=== PATIENT | female | born 1965 | race Caucasian/White ===

== ENCOUNTER 2016-08-25 11:33 | Inpatient (IN) | payer BC ==
[2016-08-25] MEDS ORDERED: Sodium Chloride 0.9% 10 ML Syringe FLUSH PRN (13:39)
[2016-08-25] MEDS ORDERED: Sodium Chloride 0.9% 2.5 ML Syringe FLUSH PRN (13:39)
--- NOTE | 2016-08-25 13:58 | PCM.CONSN ---
- General Info Date of Service: 08/25/16 Admission Dx/Problem (Free Text): Symptomatic Anemia, Menometrorrhagia Subjective Update: 50 yo female transferred from [facility] 08/25/16 for symptomatic anemia and Menometrorrrhagia with pmh of hypertension, chronic kidney disease, and type II diabetes. Patient states that for the past 2 months she has had increased uterine bleeding. This started in approximately May. She did see Dr. Aldana here in [place] and ultrasound showed "growths" in either her uterus or ovaries patient is unsure. She was scheduled for MRI but this did not occur. She had continues heavy bleeding and last week began feeling week. She went into her PCP at [facility] yesterday 08/24/16 and was found to have a hgb of 4.0. Previous hgb on 05/18/16 was 12.9. Patient was admitted there and transfused 2 units of pRBC's with an increase in hgb to 5.5 today. Secondary to continued uterine bleeding patient was directly transferred her to Dr. Marshall, housekeeping room attendant. Patient has a history of hypertension. She states this is well controlled with 60 mg Nifedipine a day. She reports no chest pain or palpitations with her anemia. Patient has a history of chronic kidney disease. She states this all was discovered in May when she had the menometrorrhagia. She was found to have a GFR of 12 in May and was referred to Dr. Rudy Khan, Personal Shopper, who she saw in May and was referred to the renal transplant team. I did talk with the renal transplant team and they state that patient GFR in September of 2015 was 35 so there was a significant decrease to May. They also state that patient was a no show to her follow-up appointment with Dr. Khan as well as renal transplant. Patient Cr in [facility] was 3.25 on 08/24 and 2.99 on 08/25 after 2 units of pRBC's. Patient has a history of type II diabetes and has been taking Trulicity once a week on Wednesday's for this she states that her daily sugars usually range in the 160's. Patient was admitted by Dr. Marshall OBGYN and will be followed by Medicine. Functional Status: Reports: pain controlled, ambulating - Review of Systems General: Reports: Weakness, Fatigue. Denies: Chills HEENT: Denies: headaches, sinus congestion Pulmonary: Reports: shortness of breath. Denies: pleuritic chest pain, hemoptysis, wheezing Cardiovascular: Denies: Chest Pain, Palpitations, Edema Gastrointestinal: Denies: Abdominal pain, Hematochezia, Melena, Nausea, Vomiting Genitourinary: Denies: dysuria, hematuria Musculoskeletal: Denies: neck pain, leg pain Skin: Reports: pallor. Denies: cyanosis Neurological: Denies: Confusion, Dizziness, Headache Psychiatric: Denies: confusion - Patient Data Vitals - most recent: Last Vital Signs Temp 36.9 C 08/25/16 12:00 Pulse 89 08/25/16 12:00 Resp 16 08/25/16 12:00 BP 136/64 08/25/16 12:00 Pulse Ox 96 08/25/16 12:00 Weight - most recent: 102.33 kg Lab Results last 24 hrs: Laboratory Results - last 24 hr 08/25/16 08/25/16 Range/Units 12:47 12:47 WBC 11.81 H (4.0-11.0) K/uL RBC 2.22 L (4.30-5.90) M/uL Hgb 6.1 L (12.0-16.0) g/dL Hct 19.2 L (36.0-46.0) % MCV 86.5 (80.0-98.0) fL MCH 27.5 (27.0-32.0) pg MCHC 31.8 (31.0-37.0) g/dL RDW Std Deviation 50.8 (28.0-62.0) fl RDW Coeff of Tacho 16 H (11.0-15.0) % Plt Count 509 H (150-400) K/uL MPV 8.50 (7.40-12.00) fL Neut % (Auto) 72.9 (48.0-80.0) % Lymph % (Auto) 15.8 L (16.0-40.0) % [place] % (Auto) 9.7 (0.0-15.0) % Eos % (Auto) 1.4 (0.0-7.0) % Baso % (Auto) 0.2 (0.0-1.5) % Neut # 8.6 H (1.4-5.7) K/uL Lymph # 1.9 (0.6-2.4) K/uL [place] # 1.2 H (0.0-0.8) K/uL Eos # 0.2 (0.0-0.7) K/uL Baso # 0.0 (0.0-0.1) K/uL Nucleated RBC % 1.6 /100WBC Nucleated RBCs # 0 K/uL Sodium 140 (136-146) mmol/L Potassium 4.5 (3.5-5.1) mmol/L Chloride 112 H (98-110) mmol/L Carbon Dioxide 19 L (21-31) mmol/L BUN 31 H (6.0-23.0) mg/dL Creatinine 2.9 H (0.6-1.5) mg/dL Est Cr Clr Drug Dosing 23.41 mL/min Estimated GFR (MDRD) 17.2 ml/min Glucose 120 H (60-110) mg/dL Calcium 8.8 (8.8-10.8) mg/dL Total Bilirubin 0.2 (0.1-1.5) mg/dL AST 13 (5-40) IU/L ALT 9 (8-54) IU/L Alkaline Phosphatase 19 L (40-150) Total Protein 6.9 (6.0-8.0) g/dL Albumin 3.4 L (3.5-5.0) g/dL Globulin 3.5 (2.0-3.5) g/dL Albumin/Globulin Ratio 1.0 L (1.3-2.8) Med Orders - Current: Current Medications Insulin Human Regular (Novolin R) 0 unit SUBCUT TIDAC ANEUDY PRN Reason: Protocol Sodium Chloride (Saline Flush) 10 ml FLUSH ASDIRECTED PRN PRN Reason: Keep Vein Open Sodium Chloride (Saline Flush) 2.5 ml FLUSH ASDIRECTED PRN PRN Reason: Keep Vein Open - Exam Quality Assessment: DVT prophylaxis (symptomatic anemia DVT prophylaxis held SCD's in place) General: alert, oriented, cooperative, no acute distress HEENT: Pupils equal, Pupils reactive, EOMI, Mucous membr. moist/pink Neck: supple, trachea midline Lungs: Clear to auscultation, Normal respiratory effort Cardiovascular: Regular Rate, Regular Rhythm Abdomen: bowel sounds present, soft, no tenderness, no distension (Female) Exam: Normal bimanual exam Back Exam: normal inspection, full range of motion Extremities: no edema, normal pulses, no tenderness/swelling, no calf tenderness Peripheral Pulses: 2+: radial (L), radial (R), posterior tibial (L), posterior tibial (R), dorsalis pedis (L), dorsalis pedis (R) Skin: warm, dry, intact Neurological: no new focal deficit Psy/Mental Status: alert, normal affect, normal mood Consult PN Assessment/Plan (1) Symptomatic anemia SNOMED Code(s): 675273515 Code(s): D64.9 - ANEMIA, UNSPECIFIED Priority: High Current Visit: Yes (2) Menometrorrhagia SNOMED Code(s): 145184774 Code(s): N92.1 - EXCESSIVE AND FREQUENT MENSTRUATION WITH IRREGULAR CYCLE Priority: High Current Visit: Yes (3) Acute on chronic kidney failure SNOMED Code(s): 446606767 Code(s): N17.9 - ACUTE KIDNEY FAILURE, UNSPECIFIED; N18.9 - CHRONIC KIDNEY DISEASE, UNSPECIFIED Priority: Medium Current Visit: Yes (4) Hypertension SNOMED Code(s): 76357707 Code(s): I10 - ESSENTIAL (PRIMARY) HYPERTENSION Priority: Medium Current Visit: Yes Qualifiers: Hypertension type: essential hypertension Qualified Code(s): I10 - Essential (primary) hypertension (5) Diabetes type 2, controlled SNOMED Code(s): 26122685 Code(s): E11.9 - TYPE 2 DIABETES MELLITUS WITHOUT COMPLICATIONS Current Visit: Yes Qualifiers: Proliferative retinopathy type: unspecified Diabetes mellitus assisted insulin use: without assisted use Laterality: unspecified laterality Problem List Initiated/Reviewed/Updated: Yes My Orders last 24 hours: My Active Orders 08/25/16 17:00 Insulin Regular, Human [NovoLIN R] See Protocol SUBCUT TIDAC Plan: 50 yo female admitted to [facility] (Dr. Marshall) on 08/25/16 for symptomatic anemia secondary to menometrorrhagia with pmh of chronic kidney disease, hypertension and type II diabetes. Symptomatic anemia: Dr. Marshall has order 4 units of pRBC's and is transfusing 2 units at this time. Will monitor. Menometrorhagia: Dr. Marshall has ordered CT abd/pelvis without contrast secondary to renal funtion. Will monitor results. Acute on Chronic Kidney disease: Most likely acute prerenal kidney injury secondary to anemia on chronic renal failure. Patient has been a no show to repeat clinic appointments with Dr. Rudy Khan, senior analyst programmer, in [place] and I talked with renal transplant there that stated she did not show for her appointment with them. Recommend transfusion and monitoring with possible lasix between bags. Will cont. to monitor. Hypertension: Will hold patient's home 60 mg Nefidipine until hemodynamically more stable. Will watch Blood pressures with transfusion and add back as more stabilized. Type II diabetes: On Trulicity every Wednesday at home. Will hold and place on medium dose ISS now. Monitor blood sugars and adjust as needed. I did place the patient on the ISS for Dr. Marshall. VTE: Symptomatic anemia with bleeding will hold pharmacologic prophylaxis and place SCD's Thank you for your consult.
[2016-08-25] MEDS ORDERED: Ibuprofen 600 MG Tab PO SCH (14:30)
--- NOTE | 2016-08-25 15:47 | CT ---
CT of the abdomen and pelvis without contrast. HISTORY: Pelvic mass. TECHNIQUE: Axial CT images were obtained of the abdomen and pelvis without contrast. Coronal and sag ittal reconstructions obtained. FINDINGS: The lung bases are clear, no pleural effusion. The liver, spleen, and pancreas appear unremarkable for noncontrast examination. There is a tiny 8 mm left adrenal nodule. There is mild pericholecystic stranding however the gallbladder is decompres sed. There is no bulky retroperitoneal lymphadenopathy. No abdominal ascites. Small nonobstructing renal stones noted. Renal vascular calcifications are also noted. There is mode rate perirenal stranding. The large and small bowel are normal in caliber without evidence of obstruction. Mild diverticulosis without evidence of diverticulitis. There is no bulky pelvic lymphadenopathy. No free fluid. No haja e air. The urinary bladder appears normal. Both ovaries are enlarged, measuring 5 x 3.4 cm on the ri ght and 5.4 x 3.7 cm on the left. There is a trace cystic component within the ovaries bilaterally. There is grade 2 anterolisthesis of L5 on S1 with chronic bilateral spondylolysis. Otherwise no susp icious osseous abnormalities. IMPRESSION: 1. Both ovaries are mildly enlarged bilaterally, measuring 5.0 x 3.4 cm on the right and 5.4 x 3.7 c m on the left. Correlation with ultrasound or MRI may be beneficial. 2. Tiny 8 mm left adrenal nodule, most likely an adenoma, follow-up in one year may be beneficial. 3. Mild pericholecystic stranding with a decompressed gallbladder. 4. Moderate perirenal stranding bilaterally without evidence of obstructive uropathy. 5. Grade 2 anterolisthesis of L5 on S1 with bilateral spondylolysis.
[2016-08-25] MEDS: Insulin Regular, Human 100 Units/ML 10 ML Vial SUBCUT SCH (17:16)
--- NOTE | 2016-08-25 21:11 | HP ---
DATE OF : 1965 PRIMARY CARE PHYSICIAN: None PCP ADMITTING DIAGNOSES: Menometrorrhagia, anemia, and possible fibroid uterus. PAST MEDICAL HISTORY: Positive for diabetes type 2, obesity, hypertension, chronic kidney disease, restless legs syndrome. PAST SURGICAL HISTORY: She is status post right oophorectomy or right ovarian cystectomy. She is status post left hand cyst excision. FAMILY HISTORY: Noncontributory. ALLERGIES: The patient is allergic to codeine. She gave a history of itching using the codeine. MEDICATIONS: The patient takes Trulicity, nifedipine, and Tylenol as needed. SOCIAL HISTORY: She is a smoker. She smoked over 30 years. She is social drinker. She denies use of recreational drugs. REVIEW OF SYSTEMS: Noncontributory. PHYSICAL EXAMINATION: GENERAL: A pleasant female without any apparent distress. The patient is alert, pale, obese. She is oriented to time and place. There is no distress. VITAL SIGNS: Essentially is normal. HEENT: Head examination is normal. NECK: Normal. HEART: Normal. S1, S2. CHEST: Clear to auscultation. No rales, no crepitation. ABDOMEN: Soft, obese, and nontender. Bowel sound was present. EXTREMITIES: Normal. PELVIC: Revealed the external vulva is normal. The vagina is normal. Cervix without any cervical lesion. Bimanual examination is very difficult to assess because of the patient's obesity. The uterus sound procedure; the uterus sounded to 10 cm and then Pipelle is introduced into the endometrial cavity and endometrial biopsy is performed. ASSESSMENT: This is 50-year-old patient, is nulliparous. She had a renal insufficiency probably due to her hypertension and diabetes. She is transferred to our service from [facility]. She has excessive vaginal bleeding, menometrorrhagia. At the time of her admission at [facility], her hemoglobin was 4, the patient got transfused 2 units of packed cells and the hospital ran out of her blood and because she may need gynecologic care, the patient is referred here for further treatment. Upon admission, I reviewed her lab. Her hemoglobin was 6. Her lab work other than her creatinine 2.8 is within normal limits. PLAN: My plan is to admit the patient to type and crossmatch for 4 units, transfuse 2 units, re-evaluate her H and H and I am planning to do endometrial biopsy and CAT scan of the pelvis and abdomen to evaluate her abdomen and then we would do further evaluation of her for possible surgery if she needed it done later into the week. GARRICK / PATRICIO /[id number]
[2016-08-25] MEDS: Acetaminophen/oxyCODONE 325-5 MG Tab PO PRN (23:57)
[2016-08-26] MEDS: Insulin Regular, Human 100 Units/ML 10 ML Vial SUBCUT SCH ×3 (06:40→17:03)
--- NOTE | 2016-08-26 11:25 | PCM.PN ---
- General Info Date of Service: 08/26/16 Admission Dx/Problem (Free Text): Symptomatic Anemia, Menometrorrhagia Subjective Update: Weakness and overall energy improved after 2 units of prbc's last night. Eating and eliminating without difficulty. No vaginal bleeding at this time. No pain, slept well. No complaints. Functional Status: Reports: pain controlled, tolerating diet, ambulating - Review of Systems General: Reports: Weakness, Fatigue. Denies: Fever HEENT: Denies: eye pain, headaches, sinus congestion Pulmonary: Denies: shortness of breath, hemoptysis, wheezing Cardiovascular: Denies: Chest Pain, Palpitations, Edema Gastrointestinal: Denies: Abdominal pain, Hematochezia, Melena, Nausea, Vomiting Genitourinary: Denies: dysuria, hematuria Musculoskeletal: Denies: leg pain Skin: Denies: cyanosis Neurological: Denies: Confusion, Dizziness Psychiatric: Denies: confusion - Patient Data Vitals - most recent: Last Vital Signs Temp 37.0 C 08/26/16 11:17 Pulse 85 08/26/16 11:17 Resp 16 08/26/16 11:17 BP 146/77 H 08/26/16 11:17 Pulse Ox 97 08/26/16 11:17 Weight - most recent: 102.33 kg I&O - last 24 hours: Intake & Output 08/25/16 08/26/16 08/26/16 22:59 06:59 14:59 Intake Total 812 1838 0 Output Total 600 1600 Balance 212 238 0 Lab Results last 24 hrs: Laboratory Results - last 24 hr 08/25/16 08/25/16 08/25/16 Range/Units 12:47 12:47 12:47 WBC 11.81 H (4.0-11.0) K/uL RBC 2.22 L (4.30-5.90) M/uL Hgb 6.1 L (12.0-16.0) g/dL Hct 19.2 L (36.0-46.0) % MCV 86.5 (80.0-98.0) fL MCH 27.5 (27.0-32.0) pg MCHC 31.8 (31.0-37.0) g/dL RDW Std Deviation 50.8 (28.0-62.0) fl RDW Coeff of Tacho 16 H (11.0-15.0) % Plt Count 509 H (150-400) K/uL MPV 8.50 (7.40-12.00) fL Neut % (Auto) 72.9 (48.0-80.0) % Lymph % (Auto) 15.8 L (16.0-40.0) % [place] % (Auto) 9.7 (0.0-15.0) % Eos % (Auto) 1.4 (0.0-7.0) % Baso % (Auto) 0.2 (0.0-1.5) % Neut # 8.6 H (1.4-5.7) K/uL Lymph # 1.9 (0.6-2.4) K/uL [place] # 1.2 H (0.0-0.8) K/uL Eos # 0.2 (0.0-0.7) K/uL Baso # 0.0 (0.0-0.1) K/uL Nucleated RBC % 1.6 /100WBC Nucleated RBCs # 0 K/uL Sodium 140 (136-146) mmol/L Potassium 4.5 (3.5-5.1) mmol/L Chloride 112 H (98-110) mmol/L Carbon Dioxide 19 L (21-31) mmol/L BUN 31 H (6.0-23.0) mg/dL Creatinine 2.9 H (0.6-1.5) mg/dL Est Cr Clr Drug Dosing 23.41 mL/min Estimated GFR (MDRD) 17.2 ml/min Glucose 120 H (60-110) mg/dL POC Glucose (60-110) mg/dL Calcium 8.8 (8.8-10.8) mg/dL Total Bilirubin 0.2 (0.1-1.5) mg/dL AST 13 (5-40) IU/L ALT 9 (8-54) IU/L Alkaline Phosphatase 19 L (40-150) Total Protein 6.9 (6.0-8.0) g/dL Albumin 3.4 L (3.5-5.0) g/dL Globulin 3.5 (2.0-3.5) g/dL Albumin/Globulin Ratio 1.0 L (1.3-2.8) CA 125 Antigen (0-35) U/ML Blood Type A POSITIVE Antibody Screen NEGATIVE Crossmatch See Detail 08/26/16 08/26/16 08/26/16 Range/Units 04:37 04:37 04:37 WBC 11.16 H (4.0-11.0) K/uL RBC 2.65 L (4.30-5.90) M/uL Hgb 7.4 L (12.0-16.0) g/dL Hct 23.2 L (36.0-46.0) % MCV 87.5 (80.0-98.0) fL MCH 27.9 (27.0-32.0) pg MCHC 31.9 (31.0-37.0) g/dL RDW Std Deviation 50.0 (28.0-62.0) fl RDW Coeff of [place] 16 H (11.0-15.0) % Plt Count 414 H (150-400) K/uL MPV 8.70 (7.40-12.00) fL Neut % (Auto) 66.0 (48.0-80.0) % Lymph % (Auto) 22.9 (16.0-40.0) % [place] % (Auto) 9.2 (0.0-15.0) % Eos % (Auto) 1.6 (0.0-7.0) % Baso % (Auto) 0.3 (0.0-1.5) % Neut # 7.4 H (1.4-5.7) K/uL Lymph # 2.6 H (0.6-2.4) K/uL [place] # 1.0 H (0.0-0.8) K/uL Eos # 0.2 (0.0-0.7) K/uL Baso # 0.0 (0.0-0.1) K/uL Nucleated RBC % 1.4 /100WBC Nucleated RBCs # 0 K/uL Sodium 141 (136-146) mmol/L Potassium 4.4 (3.5-5.1) mmol/L Chloride 112 H (98-110) mmol/L Carbon Dioxide 20 L (21-31) mmol/L BUN 33 H (6.0-23.0) mg/dL Creatinine 2.9 H (0.6-1.5) mg/dL Est Cr Clr Drug Dosing 23.41 mL/min Estimated GFR (MDRD) 17.2 ml/min Glucose 112 H (60-110) mg/dL POC Glucose (60-110) mg/dL Calcium 8.2 L (8.8-10.8) mg/dL Total Bilirubin (0.1-1.5) mg/dL AST (5-40) IU/L ALT (8-54) IU/L Alkaline Phosphatase (40-150) Total Protein (6.0-8.0) g/dL Albumin (3.5-5.0) g/dL Globulin (2.0-3.5) g/dL Albumin/Globulin Ratio (1.3-2.8) CA 125 Antigen 20.3 (0-35) U/ML Blood Type Antibody Screen Crossmatch 08/26/16 Range/Units 06:16 WBC (4.0-11.0) K/uL RBC (4.30-5.90) M/uL Hgb (12.0-16.0) g/dL Hct (36.0-46.0) % MCV (80.0-98.0) fL MCH (27.0-32.0) pg MCHC (31.0-37.0) g/dL RDW Std Deviation (28.0-62.0) fl RDW Coeff of [place] (11.0-15.0) % Plt Count (150-400) K/uL MPV (7.40-12.00) fL Neut % (Auto) (48.0-80.0) % Lymph % (Auto) (16.0-40.0) % [place] % (Auto) (0.0-15.0) % Eos % (Auto) (0.0-7.0) % Baso % (Auto) (0.0-1.5) % Neut # (1.4-5.7) K/uL Lymph # (0.6-2.4) K/uL [place] # (0.0-0.8) K/uL Eos # (0.0-0.7) K/uL Baso # (0.0-0.1) K/uL Nucleated RBC % /100WBC Nucleated RBCs # K/uL Sodium (136-146) mmol/L Potassium (3.5-5.1) mmol/L Chloride (98-110) mmol/L Carbon Dioxide (21-31) mmol/L BUN (6.0-23.0) mg/dL Creatinine (0.6-1.5) mg/dL Est Cr Clr Drug Dosing mL/min Estimated GFR (MDRD) ml/min Glucose (60-110) mg/dL POC Glucose 106 (60-110) mg/dL Calcium (8.8-10.8) mg/dL Total Bilirubin (0.1-1.5) mg/dL AST (5-40) IU/L ALT (8-54) IU/L Alkaline Phosphatase (40-150) Total Protein (6.0-8.0) g/dL Albumin (3.5-5.0) g/dL Globulin (2.0-3.5) g/dL Albumin/Globulin Ratio (1.3-2.8) CA 125 Antigen (0-35) U/ML Blood Type Antibody Screen Crossmatch Med Orders - Current: Current Medications Insulin Human Regular (Novolin R) 0 unit SUBCUT TIDAC ANEUDY PRN Reason: Protocol Last Admin: 08/26/16 06:40 Dose: Not Given Oxycodone/Acetaminophen (Percocet 325-5 Mg) 1 - 2 tab PO Q4H PRN PRN Reason: Pain Last Admin: 08/25/16 23:57 Dose: 2 tab Sodium Chloride (Saline Flush) 10 ml FLUSH ASDIRECTED PRN PRN Reason: Keep Vein Open Sodium Chloride (Saline Flush) 2.5 ml FLUSH ASDIRECTED PRN PRN Reason: Keep Vein Open Discontinued Medications Ibuprofen (Motrin) 600 mg PO ONETIME [facility] Stop: 08/25/16 16:00 Last Admin: 08/25/16 14:37 Dose: 600 mg - Exam Quality Assessment: DVT prophylaxis General: alert, oriented, cooperative, no acute distress HEENT: Pupils equal, Pupils reactive, EOMI, Mucous membr. moist/pink Neck: supple, trachea midline, no JVD Lungs: Clear to auscultation, Normal respiratory effort Cardiovascular: Regular Rate, Regular Rhythm Abdomen: bowel sounds present, soft, no tenderness, no distension Back Exam: normal inspection, full range of motion Extremities: no edema, normal pulses, no tenderness/swelling, no calf tenderness Peripheral Pulses: 2+: radial (L), radial (R), posterior tibial (L), posterior tibial (R), dorsalis pedis (L), dorsalis pedis (R) Skin: warm, dry, intact Neurological: no new focal deficit Psy/Mental Status: alert, normal affect, normal mood - Problem List & Annotations (1) Symptomatic anemia SNOMED Code(s): 304318858 Code(s): D64.9 - ANEMIA, UNSPECIFIED Status: Acute Priority: High Current Visit: Yes (2) Menometrorrhagia SNOMED Code(s): 065606889 Code(s): N92.1 - EXCESSIVE AND FREQUENT MENSTRUATION WITH IRREGULAR CYCLE Status: Acute Priority: High Current Visit: Yes (3) Acute on chronic kidney failure SNOMED Code(s): 641543304 Code(s): N17.9 - ACUTE KIDNEY FAILURE, UNSPECIFIED; N18.9 - CHRONIC KIDNEY DISEASE, UNSPECIFIED Status: Resolved Priority: Medium Current Visit: Yes (4) Hypertension SNOMED Code(s): 15309459 Code(s): I10 - ESSENTIAL (PRIMARY) HYPERTENSION Status: Acute Priority: Medium Current Visit: Yes Qualifiers: Hypertension type: essential hypertension Qualified Code(s): I10 - Essential (primary) hypertension (5) Diabetes type 2, controlled SNOMED Code(s): 87052086 Code(s): E11.9 - TYPE 2 DIABETES MELLITUS WITHOUT COMPLICATIONS Status: Chronic Priority: Medium Current Visit: Yes Qualifiers: Proliferative retinopathy type: unspecified Diabetes mellitus terminal press operator insulin use: without fdc use Laterality: unspecified laterality - Problem List Review Problem List Initiated/Reviewed/Updated: Yes - My Orders Last 24 Hours: My Active Orders 08/25/16 14:38 Antiembolic Devices [RC] PER UNIT ROUTINE SCD [Sequential Compression Device] [OM.PC] Routine 08/25/16 16:55 Communication Order [RC] DAILY 08/25/16 17:00 Insulin Regular, Human [NovoLIN R] See Protocol SUBCUT TIDAC 08/26/16 07:40 Transfuse PRBC [Transfuse Red Blood Cells] [COMM] Routine - Plan Plan:: 50 yo female admitted to [facility] (Dr. Marshall) on 08/25/16 for symptomatic anemia secondary to menometrorrhagia with pmh of chronic kidney disease, hypertension and type II diabetes. Symptomatic anemia: Improved Hgb from 6.1 to 7.4 with 2 units pRBC's. Patient feeling better. Will transfuse additional 2 units today and repeat H&H after. Plan for possible laproscopic hysterectomy by Dr. Marshall tomorrow or Wednesday. Will monitor. Menometrorhagia: No active bleeding today plan for lap hyst tommorrow or Wednesday by Dr. Marshall. CA-125 negative. Acute on Chronic Kidney disease: Patient GFR is 33 with a Cr of 2.9. In May after seeing Dr. Khan, laborer wharf, her Cr at that time was 2.8 so I believe we are at her baseline and I don't expect to see much more improvement of function. We will cont. to monitor closely. Hypertension: Will cont. to hold patient's home 60 mg Nefidipine until hemodynamically more stable. BP today 131/69 will consider adding back Nefidipine later today if BP increases with transfusion. Type II diabetes: Holding Trulicity on medium dose ISS now. Monitor blood sugars and adjust as needed. VTE: Symptomatic anemia with bleeding will hold pharmacologic prophylaxis and place SCD's Thank you for your consult.
--- NOTE | 2016-08-26 15:11 | CR ---
EXAMINATION: Two-view chest (PA and Lateral views). HISTORY: Pre-op. FINDINGS: The trachea is midline. The cardiomediastinal silhouette is within normal limits. No pulmonary infil trates, effusions or pneumothorax. Mild left basilar atelectasis. Osseous structures appear unremarkable. IMPRESSION: No acute cardiopulmonary process.
[2016-08-26] MEDS: NIFEdipine 30 MG Tab.ER PO SCH (15:23)
--- NOTE | 2016-08-26 15:47 | PCM.SN ---
- Free Text/Narrative Note: Anesthesia Evaluation I was notified by Dr Marshall for Pre-Op exam for surgery tomorrow. The patient and her family were present throughout all discussions. PMH: Smoker 30 plus years, HTN, chronic on acute kidney disease (she informed me she was on a renal transplant list, after further investigation from Dr Marshall , she was referred to [facility] for Renal evaluation a couple of months ago. Per Dr Delcid he informed her she may need a transplant in the future but she has not followed up with him, DM, acute anemia, GERD - daily symptoms Denies - Neuro, Liver/bleeding disorders, thyroid disease PSH: Ovarian cystectomy EKG - NSR CXR - unremarkable Denies any complications from anesthesia and no family problems with anesthesia. MP - II, multiple missing teeth I spoke with the patient regarding GETA with RSI. She was also informed additional IV access would be started after induction of anesthesia in case additional blood products would have to be transfused intra-op. All the risk and benefits were discussed with the pt including heart attack, stroke, worsening renal function, and . The patient wishes to proceed at this time. Pt is currently s/p 6 units PRBC. I will type and cross the patient for additional blood for tomorrows surgery.
[2016-08-26] MEDS: Acetaminophen/oxyCODONE 325-5 MG Tab PO PRN (22:29)
[2016-08-27] MEDS: Insulin Regular, Human 100 Units/ML 10 ML Vial SUBCUT SCH ×3 (06:45→17:29)
[2016-08-27] MEDS ORDERED: Propofol 200 MG/20 ML SDV ONE (07:28)
[2016-08-27] MEDS ORDERED: Lidocaine 2% 5 ML SDV ONE (07:28)
[2016-08-27] MEDS ORDERED: Rocuronium 10 MG/ML 10 ML Syringe ONE (07:28)
[2016-08-27] MEDS ORDERED: Midazolam 1 MG/ML 2 ML SDV ONE (07:28)
[2016-08-27] MEDS ORDERED: fentaNYL 100 MCG/2 ML SDV ONE ×2 (07:28→14:00)
--- NOTE | 2016-08-27 08:31 | PCM.CONSN ---
- General Info Date of Service: 08/27/16 Admission Dx/Problem (Free Text): Symptomatic Anemia, Menometrorrhagia Subjective Update: Patient sleeping when entered room. States she sleep well last night. Has been NPO since midnight. No chest pain, palpitation, or shortness of breath. Denies peripheral edema. Doing well no complaints, ready for surgery today. Functional Status: Reports: pain controlled, ambulating - Review of Systems General: Denies: Fever, Fatigue, Malaise HEENT: Denies: headaches, sinus congestion, sore throat Pulmonary: Denies: shortness of breath, cough, wheezing Cardiovascular: Denies: Chest Pain, Edema Gastrointestinal: Denies: Abdominal pain, Diarrhea, Nausea, Vomiting Genitourinary: Denies: dysuria, hematuria Musculoskeletal: Denies: leg pain, foot pain Skin: Denies: cyanosis Neurological: Denies: Confusion, Dizziness Psychiatric: Denies: confusion - Patient Data Vitals - most recent: Last Vital Signs Temp 36.9 C 08/27/16 04:00 Pulse 83 08/27/16 04:00 Resp 18 08/27/16 04:00 BP 135/71 08/27/16 04:00 Pulse Ox 97 08/27/16 04:00 Weight - most recent: 102.33 kg I&O - last 24 hours: Intake & Output 08/26/16 08/27/16 08/27/16 22:59 06:59 14:59 Intake Total 1250 1400 Output Total 2200 1500 Balance -950 -100 Lab Results last 24 hrs: Laboratory Results - last 24 hr 08/25/16 08/25/16 08/26/16 Range/Units 12:47 12:47 20:52 WBC (4.0-11.0) K/uL RBC (4.30-5.90) M/uL Hgb 10.3 L (12.0-16.0) g/dL Hct 31.6 L (36.0-46.0) % MCV (80.0-98.0) fL MCH (27.0-32.0) pg MCHC (31.0-37.0) g/dL RDW Std Deviation (28.0-62.0) fl RDW Coeff of Tacho (11.0-15.0) % Plt Count (150-400) K/uL MPV (7.40-12.00) fL Neut % (Auto) (48.0-80.0) % Lymph % (Auto) (16.0-40.0) % [place] % (Auto) (0.0-15.0) % Eos % (Auto) (0.0-7.0) % Baso % (Auto) (0.0-1.5) % Neut # (Auto) (1.4-5.7) K/uL Lymph # (Auto) (0.6-2.4) K/uL [place] # (Auto) (0.0-0.8) K/uL Eos # (Auto) (0.0-0.7) K/uL Baso # (Auto) (0.0-0.1) K/uL Nucleated RBC % /100WBC Nucleated RBCs # K/uL Sodium (136-146) mmol/L Potassium (3.5-5.1) mmol/L Chloride (98-110) mmol/L Carbon Dioxide (21-31) mmol/L BUN (6.0-23.0) mg/dL Creatinine (0.6-1.5) mg/dL Est Cr Clr Drug Dosing mL/min Estimated GFR (MDRD) ml/min Glucose (60-110) mg/dL POC Glucose (60-110) mg/dL Calcium (8.8-10.8) mg/dL Blood Type A POSITIVE Cancelled Antibody Screen NEGATIVE Cancelled Crossmatch See Detail See Detail 08/27/16 08/27/16 08/27/16 Range/Units 00:14 05:16 05:16 WBC 12.12 H (4.0-11.0) K/uL RBC 3.38 L (4.30-5.90) M/uL Hgb 9.4 L (12.0-16.0) g/dL Hct 29.4 L (36.0-46.0) % MCV 87.0 (80.0-98.0) fL MCH 27.8 (27.0-32.0) pg MCHC 32.0 (31.0-37.0) g/dL RDW Std Deviation 51.3 (28.0-62.0) fl RDW Coeff of Tacho 16 H (11.0-15.0) % Plt Count 358 (150-400) K/uL MPV 8.50 (7.40-12.00) fL Neut % (Auto) 69.8 (48.0-80.0) % Lymph % (Auto) 18.3 (16.0-40.0) % [place] % (Auto) 9.7 (0.0-15.0) % Eos % (Auto) 2.0 (0.0-7.0) % Baso % (Auto) 0.2 (0.0-1.5) % Neut # (Auto) 8.5 H (1.4-5.7) K/uL Lymph # (Auto) 2.2 (0.6-2.4) K/uL [place] # (Auto) 1.2 H (0.0-0.8) K/uL Eos # (Auto) 0.2 (0.0-0.7) K/uL Baso # (Auto) 0.0 (0.0-0.1) K/uL Nucleated RBC % 0.6 /100WBC Nucleated RBCs # 0 K/uL Sodium 140 (136-146) mmol/L Potassium 4.5 (3.5-5.1) mmol/L Chloride 112 H (98-110) mmol/L Carbon Dioxide 18 L (21-31) mmol/L BUN 33 H (6.0-23.0) mg/dL Creatinine 2.8 H (0.6-1.5) mg/dL Est Cr Clr Drug Dosing 24.25 mL/min Estimated GFR (MDRD) 17.9 ml/min Glucose 111 H (60-110) mg/dL POC Glucose 126 H (60-110) mg/dL Calcium 7.9 L (8.8-10.8) mg/dL Blood Type Antibody Screen Crossmatch Med Orders - Current: Current Medications Sodium Chloride (Normal Saline) 1,000 mls @ 50 mls/hr IV ASDIRECTED ANEUDY Insulin Human Regular (Novolin R) 0 unit SUBCUT TIDAC ANEUDY PRN Reason: Protocol Last Admin: 08/27/16 06:45 Dose: Not Given Nifedipine (Procardia Xl) 60 mg PO DAILY ANEUDY Last Admin: 08/26/16 15:23 Dose: 60 mg Oxycodone/Acetaminophen (Percocet 325-5 Mg) 1 - 2 tab PO Q4H PRN PRN Reason: Pain Last Admin: 08/26/16 22:29 Dose: 2 tab Sodium Chloride (Saline Flush) 10 ml FLUSH ASDIRECTED PRN PRN Reason: Keep Vein Open Sodium Chloride (Saline Flush) 2.5 ml FLUSH ASDIRECTED PRN PRN Reason: Keep Vein Open Discontinued Medications Fentanyl (Sublimaze) Confirm Administered Dose 100 mcg .ROUTE .STK-MED ONE Stop: 08/27/16 07:29 Ibuprofen (Motrin) 600 mg PO ONETIME ANEUDY Stop: 08/25/16 16:00 Last Admin: 08/25/16 14:37 Dose: 600 mg Lidocaine (Xylocaine-Mpf 2%) Confirm Administered Dose 5 ml .ROUTE .STK-MED ONE Stop: 08/27/16 07:29 Midazolam HCl (Versed 1 Mg/Ml) Confirm Administered Dose 2 mg .ROUTE .STK-MED ONE Stop: 08/27/16 07:29 Propofol (Diprivan 20 Ml) Confirm Administered Dose 200 mg .ROUTE .STK-MED ONE Stop: 08/27/16 07:29 Rocuronium [place] (Zemuron) Confirm Administered Dose 100 mg .ROUTE .STK-MED ONE Stop: 08/27/16 07:29 - Exam Quality Assessment: DVT prophylaxis General: alert, oriented, cooperative, no acute distress HEENT: Pupils equal, Pupils reactive, EOMI, Mucous membr. moist/pink Neck: supple, trachea midline, no JVD Lungs: Clear to auscultation, Normal respiratory effort Cardiovascular: Regular Rate, Regular Rhythm Abdomen: bowel sounds present, soft, no tenderness, no distension Back Exam: normal inspection Extremities: no edema, normal pulses, no tenderness/swelling, no calf tenderness Peripheral Pulses: 2+: radial (L), radial (R), posterior tibial (L), posterior tibial (R), dorsalis pedis (L), dorsalis pedis (R) Skin: warm, dry, intact Neurological: no new focal deficit Psy/Mental Status: alert, normal affect, normal mood Consult PN Assessment/Plan (1) Symptomatic anemia SNOMED Code(s): 322918408 Code(s): D64.9 - ANEMIA, UNSPECIFIED Priority: High Current Visit: Yes (2) Menometrorrhagia SNOMED Code(s): 277125884 Code(s): N92.1 - EXCESSIVE AND FREQUENT MENSTRUATION WITH IRREGULAR CYCLE Priority: High Current Visit: Yes (3) Acute on chronic kidney failure SNOMED Code(s): 266270534 Code(s): N17.9 - ACUTE KIDNEY FAILURE, UNSPECIFIED; N18.9 - CHRONIC KIDNEY DISEASE, UNSPECIFIED Priority: Medium Current Visit: Yes (4) Hypertension SNOMED Code(s): 63849226 Code(s): I10 - ESSENTIAL (PRIMARY) HYPERTENSION Priority: Medium Current Visit: Yes Qualifiers: Hypertension type: essential hypertension Qualified Code(s): I10 - Essential (primary) hypertension (5) Diabetes type 2, controlled SNOMED Code(s): 22632400 Code(s): E11.9 - TYPE 2 DIABETES MELLITUS WITHOUT COMPLICATIONS Priority: Medium Current Visit: Yes Qualifiers: Proliferative retinopathy type: unspecified Diabetes mellitus intermodal customer service insulin use: without usp use Laterality: unspecified laterality Problem List Initiated/Reviewed/Updated: Yes My Orders last 24 hours: My Active Orders 08/26/16 07:40 Transfuse PRBC [Transfuse Red Blood Cells] [COMM] Routine 08/26/16 12:28 PACKED CELLS [RED BLOOD CELLS LP] [BBK] Routine 08/26/16 12:29 EKG Documentation Completion [RC] ROUTINE 08/26/16 Dinner NPO After Midnight [Nothing per Oral After Midnight Diet] [DIET] 08/27/16 00:11 Accu Check [Blood Glucose Check, Bedside] [RC] Q6H 08/27/16 08:30 Sodium Chloride 0.9% [Normal Saline] 1,000 ml IV ASDIRECTED 08/28/16 05:00 BMP [BASIC METABOLIC PANEL,BMP] [CHEM] DAILY CBC WITH AUTO DIFF [HEME] DAILY 08/29/16 05:00 BMP [BASIC METABOLIC PANEL,BMP] [CHEM] DAILY CBC WITH AUTO DIFF [HEME] DAILY 08/30/16 05:00 BMP [BASIC METABOLIC PANEL,BMP] [CHEM] DAILY CBC WITH AUTO DIFF [HEME] DAILY Plan: 50 yo female admitted to [facility] (Dr. Marshall) on 08/25/16 for symptomatic anemia secondary to menometrorrhagia with pmh of chronic kidney disease, hypertension and type II diabetes. Symptomatic anemia: Resolved Hgb increase from 7.4 to 9.1 with additional 2 units pRBC's. 2 units of pRBC's on stand by. Laproscopic hysterectomy planned for today at [address] Marshall. Will continue to monitor. May need additional 2 units after surgery. Menometrorhagia: No active bleeding. Lap hyst planned for today. Acute on Chronic Kidney disease: Acute resolved back at baseline of Cr 2.8. Patient has not followed up with Dr. Khan, [facility] [place] or transplant team. Will plan to make an appointment for him on discharge. We will cont. to monitor closely. Hypertension: Restarted home 60 mg Nefidipine yesterday secondary to hypertension. Stable today. Type II diabetes: Holding Trulicity on medium dose ISS now. Monitor blood sugars and adjust as needed. VTE: Surgery this afternoon hold pharmacologic, SCD's in place. Thank you for your consult.
[2016-08-27] MEDS: NIFEdipine 30 MG Tab.ER PO SCH (08:34)
[2016-08-27] MEDS: Sodium Chloride 0.9% 1,000 ML IV SCH ×2 (09:35→16:25)
[2016-08-27] MEDS ORDERED: Fluorescein 5 ML Vial ONE (11:27)
[2016-08-27] MEDS ORDERED: Octyl 2-Cyanoacrylate 1 Tube ONE (11:27)
--- NOTE | 2016-08-27 12:12 | PCM.PREANE ---
Preanesthetic Assessment - Anesthesia/Transfusion/Family Hx Anesthesia History: Prior Anesthesia Without Reaction Family History of Anesthesia Reaction: No Transfusion History: Prior Transfusion Reaction Type of Transfusion Reactions: Reports: Other (see below) Other Type of Transfusion Reaction: itchiness Intubation History: Unknown Additional History: see prior notes by Dr. Marks, Raleigh Higuera CRNA, and Dr. Marshall. 2 units PRBC still available. - Review of Systems General: Weakness (still present but less than at admission) Pulmonary: Other (smoker) Cardiovascular: No Symptoms (was orthopneic on arrival yesterday - PRBCs helped greatly) Gastrointestinal: No symptoms Neurological: No Symptoms Other: Reports: Diabetes (on Trulicity) - Physical Assessment O2 Sat by Pulse Oximetry: 99 Respiratory Rate: 18 Blood Pressure: 141/72 Temperature: 98.8 F Vital Signs: Last Vital Signs Temp 98.5 F 08/27/16 08:00 Pulse 81 08/27/16 08:00 Resp 18 08/27/16 08:00 BP 141/72 H 08/27/16 08:34 Pulse Ox 99 08/27/16 08:00 Height: 5 ft 8 in Weight: 225 lb 9.6 oz Mental Status: Alert & Oriented x3 Airway Class: Mallampati = 1 Dentition: Reports: Dentures, Partial (remnant pegs on lower ) Thyro-Mental Finger Breadths: 3 Mouth Opening Finger Breadths: 3 ROM/Head Extension: Full Lungs: Clear to auscultation, Normal respiratory effort Cardiovascular: Regular Rate, Regular Rhythm, No Murmurs - Lab Values: Laboratory Last Values WBC 12.12 K/uL (4.0-11.0) H 08/27/16 05:16 RBC 3.38 M/uL (4.30-5.90) L 08/27/16 05:16 Hgb 9.4 g/dL (12.0-16.0) L 08/27/16 05:16 Hct 29.4 % (36.0-46.0) L 08/27/16 05:16 MCV 87.0 fL (80.0-98.0) 08/27/16 05:16 MCH 27.8 pg (27.0-32.0) 08/27/16 05:16 MCHC 32.0 g/dL (31.0-37.0) 08/27/16 05:16 RDW Std Deviation 51.3 fl (28.0-62.0) 08/27/16 05:16 RDW Coeff of T[place] 16 % (11.0-15.0) H 08/27/16 05:16 Plt Count 358 K/uL (150-400) 08/27/16 05:16 MPV 8.50 fL (7.40-12.00) 08/27/16 05:16 Neut % (Auto) 69.8 % (48.0-80.0) 08/27/16 05:16 Lymph % (Auto) 18.3 % (16.0-40.0) 08/27/16 05:16 [place] % (Auto) 9.7 % (0.0-15.0) 08/27/16 05:16 Eos % (Auto) 2.0 % (0.0-7.0) 08/27/16 05:16 Baso % (Auto) 0.2 % (0.0-1.5) 08/27/16 05:16 Neut # (Auto) 8.5 K/uL (1.4-5.7) H 08/27/16 05:16 Lymph # (Auto) 2.2 K/uL (0.6-2.4) 08/27/16 05:16 [place] # (Auto) 1.2 K/uL (0.0-0.8) H 08/27/16 05:16 Eos # (Auto) 0.2 K/uL (0.0-0.7) 08/27/16 05:16 Baso # (Auto) 0.0 K/uL (0.0-0.1) 08/27/16 05:16 Nucleated RBC % 0.6 /100WBC 08/27/16 05:16 Nucleated RBCs # 0 K/uL 08/27/16 05:16 Sodium 140 mmol/L (136-146) 08/27/16 05:16 Potassium 4.5 mmol/L (3.5-5.1) 08/27/16 05:16 Chloride 112 mmol/L (98-110) H 08/27/16 05:16 Carbon Dioxide 18 mmol/L (21-31) L 08/27/16 05:16 BUN 33 mg/dL (6.0-23.0) H 08/27/16 05:16 Creatinine 2.8 mg/dL (0.6-1.5) H 08/27/16 05:16 Est Cr Clr Drug Dosing 24.25 mL/min 08/27/16 05:16 Estimated GFR (MDRD) 17.9 ml/min 08/27/16 05:16 Glucose 111 mg/dL (60-110) H 08/27/16 05:16 POC Glucose 108 mg/dL (60-110) 08/27/16 11:38 Calcium 7.9 mg/dL (8.8-10.8) L 08/27/16 05:16 Total Bilirubin 0.2 mg/dL (0.1-1.5) 08/25/16 12:47 AST 13 IU/L (5-40) 08/25/16 12:47 ALT 9 IU/L (8-54) 08/25/16 12:47 Alkaline Phosphatase 19 (40-150) L 08/25/16 12:47 Total Protein 6.9 g/dL (6.0-8.0) 08/25/16 12:47 Albumin 3.4 g/dL (3.5-5.0) L 08/25/16 12:47 Globulin 3.5 g/dL (2.0-3.5) 08/25/16 12:47 Albumin/Globulin Ratio 1.0 (1.3-2.8) L 08/25/16 12:47 CA 125 Antigen 20.3 U/ML (0-35) 08/26/16 04:37 Blood Type A POSITIVE 08/25/16 12:47 Antibody Screen NEGATIVE 08/25/16 12:47 Crossmatch See Detail 08/25/16 12:47 - Allergies Allergies/Adverse Reactions: Allergies Allergy/AdvReac Type Severity Reaction Status Date / Time codeine Allergy Other Verified 08/25/16 12:34 - Blood Blood Available: Yes Product(s) Available: PRBC (2u) - Acknowledgements Anesthesia Type Planned: General Anesthesia (OET) Pt an Appropriate Candidate for the Planned Anesthesia: Yes Alternatives and Risks of Anesthesia Discussed w Pt/Guardian: Yes Pt/Guardian Understands and Agrees with Anesthesia Plan: Yes PreAnesthesia Questionnaire Cardiovascular History: Reports: Hypertension Gastrointestinal History: Reports: Other (see below) Other Gastrointestinal History: obesity Genitourinary History: Reports: Other (see below) Other Genitourinary History: Chronic kidney disease [employer] History: Reports: Other (see below) Other OB/BYN History: removeal of right ovarya dn faloopian tube Endocrine/Metabolic History: Reports: Diabetes, type II - SUBSTANCE USE Smoking Status *Q: Current Every Day Smoker Tobacco Use Within Last Twelve Months: Cigarettes Recreational Drug Use History: No - HOME MEDS Home Medications: Home Meds Dulaglutide [Trulicity] 1.5 units SQ Q7D 08/25/16 [History] NIFEdipine [Nifedipine ER] 2 tab PO DAILY 08/25/16 [History] - CURRENT (IN HOUSE) MEDS Current Meds: Current Medications Sodium Chloride (Normal Saline) 1,000 mls @ 50 mls/hr IV ASDIRECTED [facility] Last Admin: 08/27/16 09:35 Dose: 50 mls/hr Insulin Human Regular (Novolin R) 0 unit SUBCUT TIDAC ANEUDY PRN Reason: Protocol Last Admin: 08/27/16 11:51 Dose: Not Given Nifedipine (Procardia Xl) 60 mg PO DAILY [facility] Last Admin: 08/27/16 08:34 Dose: 60 mg Oxycodone/Acetaminophen (Percocet 325-5 Mg) 1 - 2 tab PO Q4H PRN PRN Reason: Pain Last Admin: 08/26/16 22:29 Dose: 2 tab Sodium Chloride (Saline Flush) 10 ml FLUSH ASDIRECTED PRN PRN Reason: Keep Vein Open Sodium Chloride (Saline Flush) 2.5 ml FLUSH ASDIRECTED PRN PRN Reason: Keep Vein Open Discontinued Medications Fentanyl (Sublimaze) Confirm Administered Dose 100 mcg .ROUTE .STK-MED ONE Stop: 08/27/16 07:29 Fluorescein Sodium ([place]-Fluor) Confirm Administered Dose 5 ml .ROUTE .STK-MED ONE Stop: 08/27/16 11:28 Ibuprofen (Motrin) 600 mg PO ONETIME [facility] Stop: 08/25/16 16:00 Last Admin: 08/25/16 14:37 Dose: 600 mg Lidocaine (Xylocaine-Mpf 2%) Confirm Administered Dose 5 ml .ROUTE .STK-MED ONE Stop: 08/27/16 07:29 Midazolam HCl (Versed 1 Mg/Ml) Confirm Administered Dose 2 mg .ROUTE .STK-MED ONE Stop: 08/27/16 07:29 Octyl Cyanoacrylate (Dermabond Advance) Confirm Administered Dose 1 applic .ROUTE .STK-MED ONE Stop: 08/27/16 11:28 Propofol (Diprivan 20 Ml) Confirm Administered Dose 200 mg .ROUTE .STK-MED ONE Stop: 08/27/16 07:29 Rocuronium [place] (Zemuron) Confirm Administered Dose 100 mg .ROUTE .STK-MED ONE Stop: 08/27/16 07:29 Preanesthetic Assessment - ANESTHESIA/TRANSFUSION/FAMILY HX Type of Transfusion Reactions: Reports: Other (see below) Other Type of Transfusion Reaction: itchiness - PHYSICAL ASSESSMENT O2 Sat by Pulse Oximetry: 99 RR: 18 BP: 141/72 Temp: 98.8 F Vital Signs: Last Vital Signs Temp 98.5 F 08/27/16 08:00 Pulse 81 08/27/16 08:00 Resp 18 08/27/16 08:00 BP 141/72 H 08/27/16 08:34 Pulse Ox 99 08/27/16 08:00 Height: 5 ft 8 in Weight: 225 lb 9.6 oz - LAB Values: Laboratory Last Values WBC 12.12 K/uL (4.0-11.0) H 08/27/16 05:16 RBC 3.38 M/uL (4.30-5.90) L 08/27/16 05:16 Hgb 9.4 g/dL (12.0-16.0) L 08/27/16 05:16 Hct 29.4 % (36.0-46.0) L 08/27/16 05:16 MCV 87.0 fL (80.0-98.0) 08/27/16 05:16 MCH 27.8 pg (27.0-32.0) 08/27/16 05:16 MCHC 32.0 g/dL (31.0-37.0) 08/27/16 05:16 RDW Std Deviation 51.3 fl (28.0-62.0) 08/27/16 05:16 RDW Coeff of [place] 16 % (11.0-15.0) H 08/27/16 05:16 Plt Count 358 K/uL (150-400) 08/27/16 05:16 MPV 8.50 fL (7.40-12.00) 08/27/16 05:16 Neut % (Auto) 69.8 % (48.0-80.0) 08/27/16 05:16 Lymph % (Auto) 18.3 % (16.0-40.0) 08/27/16 05:16 [place] % (Auto) 9.7 % (0.0-15.0) 08/27/16 05:16 Eos % (Auto) 2.0 % (0.0-7.0) 08/27/16 05:16 Baso % (Auto) 0.2 % (0.0-1.5) 08/27/16 05:16 Neut # (Auto) 8.5 K/uL (1.4-5.7) H 08/27/16 05:16 Lymph # (Auto) 2.2 K/uL (0.6-2.4) 08/27/16 05:16 [place] # (Auto) 1.2 K/uL (0.0-0.8) H 08/27/16 05:16 Eos # (Auto) 0.2 K/uL (0.0-0.7) 08/27/16 05:16 Baso # (Auto) 0.0 K/uL (0.0-0.1) 08/27/16 05:16 Nucleated RBC % 0.6 /100WBC 08/27/16 05:16 Nucleated RBCs # 0 K/uL 08/27/16 05:16 Sodium 140 mmol/L (136-146) 08/27/16 05:16 Potassium 4.5 mmol/L (3.5-5.1) 08/27/16 05:16 Chloride 112 mmol/L (98-110) H 08/27/16 05:16 Carbon Dioxide 18 mmol/L (21-31) L 08/27/16 05:16 BUN 33 mg/dL (6.0-23.0) H 08/27/16 05:16 Creatinine 2.8 mg/dL (0.6-1.5) H 08/27/16 05:16 Est Cr Clr Drug Dosing 24.25 mL/min 08/27/16 05:16 Estimated GFR (MDRD) 17.9 ml/min 08/27/16 05:16 Glucose 111 mg/dL (60-110) H 08/27/16 05:16 POC Glucose 108 mg/dL (60-110) 08/27/16 11:38 Calcium 7.9 mg/dL (8.8-10.8) L 08/27/16 05:16 Total Bilirubin 0.2 mg/dL (0.1-1.5) 08/25/16 12:47 AST 13 IU/L (5-40) 08/25/16 12:47 ALT 9 IU/L (8-54) 08/25/16 12:47 Alkaline Phosphatase 19 (40-150) L 08/25/16 12:47 Total Protein 6.9 g/dL (6.0-8.0) 08/25/16 12:47 Albumin 3.4 g/dL (3.5-5.0) L 08/25/16 12:47 Globulin 3.5 g/dL (2.0-3.5) 08/25/16 12:47 Albumin/Globulin Ratio 1.0 (1.3-2.8) L 08/25/16 12:47 CA 125 Antigen 20.3 U/ML (0-35) 08/26/16 04:37 Blood Type A POSITIVE 08/25/16 12:47 Antibody Screen NEGATIVE 08/25/16 12:47 Crossmatch See Detail 08/25/16 12:47 - ALLERGIES Allergies/Adverse Reactions: Allergies Allergy/AdvReac Type Severity Reaction Status Date / Time codeine Allergy Other Verified 08/25/16 12:34
[2016-08-27] MEDS ORDERED: HYDROmorphone 2 MG/ML Syringe ONE (13:13)
[2016-08-27] MEDS ORDERED: Ondansetron 4 MG/2 ML SDV ONE (13:51)
[2016-08-27] MEDS ORDERED: Neostigmine Methylsulfate 1 MG/ML 5 ML Syringe ONE (13:51)
[2016-08-27] MEDS ORDERED: Furosemide 40 MG/4 ML VIAL ONE (13:51)
[2016-08-27] MEDS ORDERED: Belladonna Alkaloids/Opium 16.2-30 MG Supp RECTAL PRN (14:03)
[2016-08-27] MEDS ORDERED: Ondansetron 4 MG/2 ML SDV IVPUSH PRN (14:28)
[2016-08-27] MEDS ORDERED: Ketorolac 15 MG/ML SDV IVPUSH ONE (14:28)
[2016-08-27] MEDS ORDERED: Acetaminophen/oxyCODONE 325-5 MG Tab PO PRN (14:28)
[2016-08-27] MEDS ORDERED: Ketorolac 15 MG/ML SDV IVPUSH PRN (14:28)
[2016-08-27] MEDS ORDERED: Promethazine 25 MG/ML SDV IM PRN (14:28)
[2016-08-27] MEDS ORDERED: Morphine 4 MG/ML Syringe IVPUSH PRN (14:28)
[2016-08-27] MEDS ORDERED: Morphine 2 MG/ML Syringe IVPUSH PRN (14:28)
--- NOTE | 2016-08-27 14:28 | PCM.PN ---
- General Info Date of Service: 08/26/16 Functional Status: Reports: pain controlled - Review of Systems General: Reports: No Symptoms HEENT: Reports: no symptoms Pulmonary: Reports: no symptoms Cardiovascular: Reports: No Symptoms Gastrointestinal: Reports: No symptoms Genitourinary: Reports: no symptoms Musculoskeletal: Reports: no symptoms Skin: Reports: no symptoms Neurological: Reports: No Symptoms Psychiatric: Reports: no symptoms - Patient Data Vitals - most recent: Last Vital Signs Temp 37.1 C 08/27/16 12:13 Pulse 91 08/27/16 12:00 Resp 18 08/27/16 12:13 BP 141/72 H 08/27/16 12:13 Pulse Ox 99 08/27/16 12:13 Weight - most recent: 102.33 kg I&O - last 24 hours: Intake & Output 08/26/16 08/27/16 08/27/16 22:59 06:59 14:59 Intake Total 1250 1400 Output Total 2200 1500 Balance -950 -100 Lab Results last 24 hrs: Laboratory Results - last 24 hr 08/25/16 08/26/16 08/27/16 Range/Units 12:47 20:52 00:14 WBC (4.0-11.0) K/uL RBC (4.30-5.90) M/uL Hgb 10.3 L (12.0-16.0) g/dL Hct 31.6 L (36.0-46.0) % MCV (80.0-98.0) fL MCH (27.0-32.0) pg MCHC (31.0-37.0) g/dL RDW Std Deviation (28.0-62.0) fl RDW Coeff of T[place] (11.0-15.0) % Plt Count (150-400) K/uL MPV (7.40-12.00) fL Neut % (Auto) (48.0-80.0) % Lymph % (Auto) (16.0-40.0) % [place] % (Auto) (0.0-15.0) % Eos % (Auto) (0.0-7.0) % Baso % (Auto) (0.0-1.5) % Neut # (Auto) (1.4-5.7) K/uL Lymph # (Auto) (0.6-2.4) K/uL [place] # (Auto) (0.0-0.8) K/uL Eos # (Auto) (0.0-0.7) K/uL Baso # (Auto) (0.0-0.1) K/uL Nucleated RBC % /100WBC Nucleated RBCs # K/uL Sodium (136-146) mmol/L Potassium (3.5-5.1) mmol/L Chloride (98-110) mmol/L Carbon Dioxide (21-31) mmol/L BUN (6.0-23.0) mg/dL Creatinine (0.6-1.5) mg/dL Est Cr Clr Drug Dosing mL/min Estimated GFR (MDRD) ml/min Glucose (60-110) mg/dL POC Glucose 126 H (60-110) mg/dL Calcium (8.8-10.8) mg/dL Urine HCG, Qual (NEGATIVE) Blood Type A POSITIVE Antibody Screen NEGATIVE Crossmatch See Detail 08/27/16 08/27/16 08/27/16 Range/Units 05:16 05:16 11:38 WBC 12.12 H (4.0-11.0) K/uL RBC 3.38 L (4.30-5.90) M/uL Hgb 9.4 L (12.0-16.0) g/dL Hct 29.4 L (36.0-46.0) % MCV 87.0 (80.0-98.0) fL MCH 27.8 (27.0-32.0) pg MCHC 32.0 (31.0-37.0) g/dL RDW Std Deviation 51.3 (28.0-62.0) fl RDW Coeff of T[place] 16 H (11.0-15.0) % Plt Count 358 (150-400) K/uL MPV 8.50 (7.40-12.00) fL Neut % (Auto) 69.8 (48.0-80.0) % Lymph % (Auto) 18.3 (16.0-40.0) % [place] % (Auto) 9.7 (0.0-15.0) % Eos % (Auto) 2.0 (0.0-7.0) % Baso % (Auto) 0.2 (0.0-1.5) % Neut # (Auto) 8.5 H (1.4-5.7) K/uL Lymph # (Auto) 2.2 (0.6-2.4) K/uL [place] # (Auto) 1.2 H (0.0-0.8) K/uL Eos # (Auto) 0.2 (0.0-0.7) K/uL Baso # (Auto) 0.0 (0.0-0.1) K/uL Nucleated RBC % 0.6 /100WBC Nucleated RBCs # 0 K/uL Sodium 140 (136-146) mmol/L Potassium 4.5 (3.5-5.1) mmol/L Chloride 112 H (98-110) mmol/L Carbon Dioxide 18 L (21-31) mmol/L BUN 33 H (6.0-23.0) mg/dL Creatinine 2.8 H (0.6-1.5) mg/dL Est Cr Clr Drug Dosing 24.25 mL/min Estimated GFR (MDRD) 17.9 ml/min Glucose 111 H (60-110) mg/dL POC Glucose 108 (60-110) mg/dL Calcium 7.9 L (8.8-10.8) mg/dL Urine HCG, Qual (NEGATIVE) Blood Type Antibody Screen Crossmatch 08/27/16 Range/Units 12:35 WBC (4.0-11.0) K/uL RBC (4.30-5.90) M/uL Hgb (12.0-16.0) g/dL Hct (36.0-46.0) % MCV (80.0-98.0) fL MCH (27.0-32.0) pg MCHC (31.0-37.0) g/dL RDW Std Deviation (28.0-62.0) fl RDW Coeff of [place] (11.0-15.0) % Plt Count (150-400) K/uL MPV (7.40-12.00) fL Neut % (Auto) (48.0-80.0) % Lymph % (Auto) (16.0-40.0) % [place] % (Auto) (0.0-15.0) % Eos % (Auto) (0.0-7.0) % Baso % (Auto) (0.0-1.5) % Neut # (Auto) (1.4-5.7) K/uL Lymph # (Auto) (0.6-2.4) K/uL [place] # (Auto) (0.0-0.8) K/uL Eos # (Auto) (0.0-0.7) K/uL Baso # (Auto) (0.0-0.1) K/uL Nucleated RBC % /100WBC Nucleated RBCs # K/uL Sodium (136-146) mmol/L Potassium (3.5-5.1) mmol/L Chloride (98-110) mmol/L Carbon Dioxide (21-31) mmol/L BUN (6.0-23.0) mg/dL Creatinine (0.6-1.5) mg/dL Est Cr Clr Drug Dosing mL/min Estimated GFR (MDRD) ml/min Glucose (60-110) mg/dL POC Glucose (60-110) mg/dL Calcium (8.8-10.8) mg/dL Urine HCG, Qual NEGATIVE (NEGATIVE) Blood Type Antibody Screen Crossmatch Med Orders - Current: Current Medications Belladonna Alkaloids/Opium (B & O Supprettes No. 15a) 1 supp RECTAL .ONCE PRN PRN Reason: Pain Stop: 08/27/16 15:55 Fentanyl (Sublimaze) 50 - 100 mcg IVPUSH Q5M PRN PRN Reason: Pain Stop: 08/27/16 15:45 Sodium Chloride (Normal Saline) 1,000 mls @ 50 mls/hr IV ASDIRECTED [facility] Last Admin: 08/27/16 09:35 Dose: 50 mls/hr Insulin Human Regular (Novolin R) 0 unit SUBCUT TIDAC [facility] PRN Reason: Protocol Last Admin: 08/27/16 11:51 Dose: Not Given Nifedipine (Procardia Xl) 60 mg PO DAILY [facility] Last Admin: 08/27/16 08:34 Dose: 60 mg Oxycodone/Acetaminophen (Percocet 325-5 Mg) 1 - 2 tab PO Q4H PRN PRN Reason: Pain Last Admin: 08/26/16 22:29 Dose: 2 tab Sodium Chloride (Saline Flush) 10 ml FLUSH ASDIRECTED PRN PRN Reason: Keep Vein Open Sodium Chloride (Saline Flush) 2.5 ml FLUSH ASDIRECTED PRN PRN Reason: Keep Vein Open Discontinued Medications Fentanyl (Sublimaze) Confirm Administered Dose 100 mcg .ROUTE .ST-MED ONE Stop: 08/27/16 07:29 Fentanyl (Sublimaze) Confirm Administered Dose 100 mcg .ROUTE .ST-MED ONE Stop: 08/27/16 14:01 Fluorescein Sodium (Ak-Fluor) Confirm Administered Dose 5 ml .ROUTE .STK-MED ONE Stop: 08/27/16 11:28 Furosemide (Lasix) Confirm Administered Dose 40 mg .ROUTE .STK-MED ONE Stop: 08/27/16 13:52 Glycopyrrolate () Confirm Administered Dose 1 mg .ROUTE .ST-MED ONE Stop: 08/27/16 13:52 Hydromorphone HCl (Dilaudid) Confirm Administered Dose 2 mg .ROUTE .ST-MED ONE Stop: 08/27/16 13:14 Ibuprofen (Motrin) 600 mg PO ONETIME ANEUDY Stop: 08/25/16 16:00 Last Admin: 08/25/16 14:37 Dose: 600 mg Lidocaine (Xylocaine-Mpf 2%) Confirm Administered Dose 5 ml .ROUTE .ST-MED ONE Stop: 08/27/16 07:29 Midazolam HCl (Versed 1 Mg/Ml) Confirm Administered Dose 2 mg .ROUTE .ST-MED ONE Stop: 08/27/16 07:29 Neostigmine Methylsulfate (Neostigmine) Confirm Administered Dose 5 mg .ROUTE .STK-MED ONE Stop: 08/27/16 13:52 Octyl Cyanoacrylate (Dermabond Advance) Confirm Administered Dose 1 applic .ROUTE .ST-MED ONE Stop: 08/27/16 11:28 Ondansetron HCl (Zofran) Confirm Administered Dose 4 mg .ROUTE .ST-MED ONE Stop: 08/27/16 13:52 Propofol (Diprivan 20 Ml) Confirm Administered Dose 200 mg .ROUTE .ST-MED ONE Stop: 08/27/16 07:29 Rocuronium [place] (Zemuron) Confirm Administered Dose 100 mg .ROUTE .ST-MED ONE Stop: 08/27/16 07:29 - Exam General: alert, oriented HEENT: Pupils equal, Pupils reactive, EOMI, Mucous membr. moist/pink Neck: supple Lungs: Clear to auscultation, Normal respiratory effort Cardiovascular: Regular Rate, Regular Rhythm Abdomen: bowel sounds present, soft, no tenderness, no distension (Female) Exam: Normal external exam, Normal speculum exam, Normal bimanual exam Back Exam: normal inspection, full range of motion Extremities: no edema Skin: warm, dry, intact Wound/Incisions: healing well Neurological: no new focal deficit Psy/Mental Status: alert, normal affect, normal mood - Problem List Review Problem List Initiated/Reviewed/Updated: Yes - Assessment Assessment:: Pt to have TLH BSO in am - Plan Plan:: 50 yo female admitted to [facility] (Dr. Marshall) on 08/25/16 for symptomatic anemia secondary to menometrorrhagia with pmh of chronic kidney disease, hypertension and type II diabetes. Symptomatic anemia: Improved Hgb from 6.1 to 7.4 with 2 units pRBC's. Patient feeling better. Will transfuse additional 2 units today and repeat H&H after. Plan for possible laproscopic hysterectomy by Dr. Marshall tomorrow or Wednesday. Will monitor. Menometrorhagia: No active bleeding today plan for lap hyst tommorrow or Wednesday by Dr. Marshall. CA-125 negative. Acute on Chronic Kidney disease: Patient GFR is 33 with a Cr of 2.9. In May after seeing Dr. Khan, electrical mechanic, her Cr at that time was 2.8 so I believe we are at her baseline and I don't expect to see much more improvement of function. We will cont. to monitor closely. Hypertension: Will cont. to hold patient's home 60 mg Nefidipine until hemodynamically more stable. BP today 131/69 will consider adding back Nefidipine later today if BP increases with transfusion. Type II diabetes: Holding Trulicity on medium dose ISS now. Monitor blood sugars and adjust as needed. VTE: Symptomatic anemia with bleeding will hold pharmacologic prophylaxis and place SCD's Thank you for your consult.
--- NOTE | 2016-08-27 14:37 | PCM.OPNOTE ---
- General Post-Op/Procedure Note Date of Surgery/Procedure: 08/27/16 Pre Op Diagnosis: Vaginal bleeding Post-Op Diagnosis: Same Anesthesia Technique: General ET tube Secondary Surgeon: Lavon Marshall Housing Court Judge: Radha Pinto EBL in mLs: 125 Complications: None Condition: Good Free Text/Narrative:: Intake & Output 08/26/16 08/27/16 08/27/16 22:59 06:59 14:59 Intake Total 1250 1400 Output Total 2200 1500 Balance -950 -100
[2016-08-27] MEDS: fentaNYL 100 MCG/2 ML SDV IVPUSH PRN ×4 (15:10→15:30)
--- NOTE | 2016-08-27 15:10 | PCM.POSTAN ---
POST ANESTHESIA ASSESSMENT - MENTAL STATUS Mental Status: alert - RESPIRATORY Respiratory Status: respiratory rate WNL, airway patent, O2 saturation stable, supplemental oxygen (O2 via nasal canula) - CARDIOVASCULAR CV Status: pulse rate WNL, blood pressure stable - GASTROINTESTINAL GI Status: no symptoms - PAIN Pain Score: 5 - POST OP HYDRATION Hydration Status: adequate & stable
--- NOTE | 2016-08-27 15:49 | OR ---
SURGEON: Lavon Marshall MD DATE OF PROCEDURE: PREOPERATIVE DIAGNOSES: Menometrorrhagia, anemia, enlarged uterus, bilateral ovarian cyst, atypical endometrial hyperplasia by endometrial biopsy. POSTOPERATIVE DIAGNOSES: Menometrorrhagia, anemia, enlarged uterus, bilateral ovarian cyst, atypical endometrial hyperplasia by endometrial biopsy. OPERATION PERFORMED: Total laparoscopic hysterectomy, laparoscopic bilateral salpingo-oophorectomy, cystoscopy, and lysis of adhesion. FIELD IDENTIFICATION SPECIALIST: DEBBIE Smith. ANESTHESIA: General endotracheal intubation by Pippa Sheffield and Dr. Cuevas. ESTIMATED BLOOD LOSS: Less than 125 mL. COMPLICATIONS: None. FINDINGS: Uterus is about 12-week size. Both ovaries are enlarged measuring at about 5 to 6 cm in diameter. There is pelvic adhesion from her previous surgery and an anterior abdominal wall adhesion from her previous surgery, otherwise no significant anomaly. INDICATION: [place] refer to the admit note. PROCEDURE IN DETAIL: The patient was brought to the OR, properly identified, and after adequate level of general anesthesia, the patient was placed in lithotomy position, prepped and draped in sterile fashion as usual. Maloney catheter was placed in the bladder and the VCare manipulator was placed in the uterus for manipulation. The operation shifted abdominally. Stab wound was done beneath the umbilicus. A Veress needle was placed in the peritoneal cavity and that cavity insufflated with 6 L of carbon dioxide. The skin incision was enlarged to accommodate 5-mm trocar and the 5-mm scope utilizing the Visiport technique to enter. Then 10-12 trocar placed in the left iliac fossa using the Harmonic scalpel and adhesion from the anterior abdominal coffey and omentum from her previous surgery was used to lyse and restoring normal anatomy. Once the adhesion was lysed and we had clear visualization and clear path to the pelvis, a 5-mm trocar was placed in the right iliac fossa. The operation was started by identifying the superior pedicle from both side and the superior pedicle coagulated and transected using the Harmonic scalpel with GIFTY-7 Harmonic scalpel. Round ligament from both side in the same manner coagulated and transected, and then the anterior leaf of the broad ligament dissected downward medially, and then I could feel the VCare manipulator through the vagina. The uterine vessel was coagulated and transected using the GIFTY-7 Harmonic scalpel on both sides. Then, the anterior vaginal wall entered anteriorly around the tip of the VCare manipulator and carried in a circular manner detaching the cervix from its attachment to the vagina. The uterus tubes and ovary were removed vaginally. Pneumoperitoneum re- established by placing vaginal pack in the vagina. Then we proceeded to close the vaginal cuff laparoscopically using 2-0 Vicryl PDS interrupted suture. After we closed that the operative field was checked completely. There was no oozing, no bleeding. The procedure was ended at this time. While we were closing the vagina, we asked the anesthesiologist to give the patient fluorescein and then cystoscopy was performed. The bladder was intact. Both ureteric orifices were seen with the dye coming from both of them. Thus, the patency of both ureters verified. Satisfied with these findings, the procedure was ended. Instrument and sponge count were correct. The patient tolerated the procedure well, went to recovery room in stable general condition. GARRICK CURRY /[id number]
[2016-08-27] MEDS ORDERED: Sodium Chloride 0.9% 1,000 ML IV SCH (18:00)
--- NOTE | 2016-08-27 18:04 | PCM48HPAN ---
Post Anesthesia Note - EVALUATION WITHIN 48HRS OF ANESTHETIC Vital Signs in Normal Range: Yes Patient Participated in Evaluation: Yes Respiratory Function Stable: Yes Airway Patent: Yes Cardiovascular Function Stable: Yes Hydration Status Stable: Yes Pain Control Satisfactory: Yes Nausea and Vomiting Control Satisfactory: Yes Mental Status Recovered: Yes
[2016-08-27] MEDS ORDERED: Scopolamine 1.5 MG Transdermal Patch TRDERM PRN (18:16)
[2016-08-27] MEDS: Acetaminophen/oxyCODONE 325-5 MG Tab PO PRN (21:53)
[2016-08-28] MEDS: Acetaminophen/oxyCODONE 325-5 MG Tab PO PRN (06:42)
[2016-08-28] MEDS: Insulin Regular, Human 100 Units/ML 10 ML Vial SUBCUT SCH (06:53)
[2016-08-28 07:26] VITALS: BP 136/66
[2016-08-28] MEDS: NIFEdipine 30 MG Tab.ER PO SCH (08:05)
[2016-08-28] MEDS ORDERED: Calcium Carbonate 500 MG Tab.Chew PO SCH (09:00)
--- NOTE | 2016-08-28 09:01 | PCM.SURGPN ---
- General Info Date of Service: 08/28/16 POD#: 1 Functional Status: Reports: pain controlled - Review of Systems General: Reports: No Symptoms HEENT: Reports: no symptoms Pulmonary: Reports: no symptoms Cardiovascular: Reports: No Symptoms Gastrointestinal: Reports: No symptoms Genitourinary: Reports: no symptoms Musculoskeletal: Reports: no symptoms Skin: Reports: no symptoms Neurological: Reports: No Symptoms Psychiatric: Reports: no symptoms - Patient Data Vitals - most recent: Last Vital Signs Temp 37.1 C 08/28/16 07:25 Pulse 97 08/28/16 07:25 Resp 16 08/28/16 07:25 BP 136/66 08/28/16 08:05 Pulse Ox 97 08/28/16 07:25 Weight - most recent: 102.33 kg I&O - last 24 hours: Intake & Output 08/27/16 08/28/16 08/28/16 22:59 06:59 14:59 Intake Total 900 1316 Output Total 610 520 Balance 290 796 Lab Results last 24 hrs: Laboratory Results - last 24 hr 08/27/16 08/27/16 08/28/16 Range/Units 11:38 12:35 04:50 WBC 14.71 H (4.0-11.0) K/uL RBC 3.31 L (4.30-5.90) M/uL Hgb 9.2 L (12.0-16.0) g/dL Hct 29.5 L (36.0-46.0) % MCV 89.1 (80.0-98.0) fL MCH 27.8 (27.0-32.0) pg MCHC 31.2 (31.0-37.0) g/dL RDW Std Deviation 52.5 (28.0-62.0) fl RDW Coeff of [place] 16 H (11.0-15.0) % Plt Count 326 (150-400) K/uL MPV 8.40 (7.40-12.00) fL Neut % (Auto) 77.2 (48.0-80.0) % Lymph % (Auto) 14.8 L (16.0-40.0) % [place] % (Auto) 7.2 (0.0-15.0) % Eos % (Auto) 0.7 (0.0-7.0) % Baso % (Auto) 0.1 (0.0-1.5) % Neut # (Auto) 11.4 H (1.4-5.7) K/uL Lymph # (Auto) 2.2 (0.6-2.4) K/uL [place] # (Auto) 1.1 H (0.0-0.8) K/uL Eos # (Auto) 0.1 (0.0-0.7) K/uL Baso # (Auto) 0.0 (0.0-0.1) K/uL Nucleated RBC % 0.2 /100WBC Nucleated RBCs # 0 K/uL Sodium (136-146) mmol/L Potassium (3.5-5.1) mmol/L Chloride (98-110) mmol/L Carbon Dioxide (21-31) mmol/L BUN (6.0-23.0) mg/dL Creatinine (0.6-1.5) mg/dL Est Cr Clr Drug Dosing mL/min Estimated GFR (MDRD) ml/min Glucose (60-110) mg/dL POC Glucose 108 (60-110) mg/dL Calcium (8.8-10.8) mg/dL Urine HCG, Qual NEGATIVE (NEGATIVE) 08/28/16 Range/Units 04:50 WBC (4.0-11.0) K/uL RBC (4.30-5.90) M/uL Hgb (12.0-16.0) g/dL Hct (36.0-46.0) % MCV (80.0-98.0) fL MCH (27.0-32.0) pg MCHC (31.0-37.0) g/dL RDW Std Deviation (28.0-62.0) fl RDW Coeff of [place] (11.0-15.0) % Plt Count (150-400) K/uL MPV (7.40-12.00) fL Neut % (Auto) (48.0-80.0) % Lymph % (Auto) (16.0-40.0) % [place] % (Auto) (0.0-15.0) % Eos % (Auto) (0.0-7.0) % Baso % (Auto) (0.0-1.5) % Neut # (Auto) (1.4-5.7) K/uL Lymph # (Auto) (0.6-2.4) K/uL [place] # (Auto) (0.0-0.8) K/uL Eos # (Auto) (0.0-0.7) K/uL Baso # (Auto) (0.0-0.1) K/uL Nucleated RBC % /100WBC Nucleated RBCs # K/uL Sodium 140 (136-146) mmol/L Potassium 4.6 (3.5-5.1) mmol/L Chloride 111 H (98-110) mmol/L Carbon Dioxide 20 L (21-31) mmol/L BUN 34 H (6.0-23.0) mg/dL Creatinine 2.9 H (0.6-1.5) mg/dL Est Cr Clr Drug Dosing 23.41 mL/min Estimated GFR (MDRD) 17.2 ml/min Glucose 103 (60-110) mg/dL POC Glucose (60-110) mg/dL Calcium 7.6 L (8.8-10.8) mg/dL Urine HCG, Qual (NEGATIVE) Med Orders - Current: Current Medications Calcium Carbonate/Glycine (Tums) 1,000 mg PO DAILY [facility] Insulin Human Regular (Novolin R) 0 unit SUBCUT TIDAC ANEUDY PRN Reason: Protocol Last Admin: 08/28/16 06:53 Dose: Not Given Ketorolac Tromethamine (Toradol) 15 mg IVPUSH Q6H PRN PRN Reason: Pain (severe 7-10) Stop: 09/01/16 14:28 Morphine Sulfate (Morphine) 2 mg IVPUSH Q2H PRN PRN Reason: Pain (severe 7-10) Last Admin: 08/27/16 16:21 Dose: 2 mg Morphine Sulfate (Morphine) 4 mg IVPUSH Q2H PRN PRN Reason: Pain (severe 7-10) Last Admin: 08/27/16 18:52 Dose: 4 mg Nifedipine (Procardia Xl) 60 mg PO DAILY [facility] Last Admin: 08/28/16 08:05 Dose: 60 mg Ondansetron HCl (Zofran) 4 mg IVPUSH Q6H PRN PRN Reason: Nausea/Vomiting Last Admin: 08/27/16 16:03 Dose: 4 mg Oxycodone/Acetaminophen (Percocet 325-5 Mg) 1 tab PO Q4H PRN PRN Reason: Pain (moderate 4-6) Oxycodone/Acetaminophen (Percocet 325-5 Mg) 2 tab PO Q4H PRN PRN Reason: Pain (moderate 4-6) Last Admin: 08/28/16 06:42 Dose: 2 tab Promethazine HCl (Phenergan) 25 mg IM Q6H PRN PRN Reason: Nausea/Vomiting Last Admin: 08/27/16 18:40 Dose: 25 mg Scopolamine (Transderm-Scop) 1.5 mg TRDERM ONETIME PRN PRN Reason: Nausea/Vomiting Sodium Chloride (Saline Flush) 10 ml FLUSH ASDIRECTED PRN PRN Reason: Keep Vein Open Sodium Chloride (Saline Flush) 2.5 ml FLUSH ASDIRECTED PRN PRN Reason: Keep Vein Open Discontinued Medications Belladonna Alkaloids/Opium (B & O Supprettes No. 15a) 1 supp RECTAL .ONCE PRN PRN Reason: Pain Stop: 08/27/16 15:55 Fentanyl (Sublimaze) Confirm Administered Dose 100 mcg .ROUTE .STK-MED ONE Stop: 08/27/16 07:29 Fentanyl (Sublimaze) Confirm Administered Dose 100 mcg .ROUTE .STK-MED ONE Stop: 08/27/16 14:01 Fentanyl (Sublimaze) 50 - 100 mcg IVPUSH Q5M PRN PRN Reason: Pain Stop: 08/27/16 15:45 Last Admin: 08/27/16 15:30 Dose: 50 mcg Fluorescein Sodium (Ak-Fluor) Confirm Administered Dose 5 ml .ROUTE .STK-MED ONE Stop: 08/27/16 11:28 Furosemide (Lasix) Confirm Administered Dose 40 mg .ROUTE .STK-MED ONE Stop: 08/27/16 13:52 Glycopyrrolate () Confirm Administered Dose 1 mg .ROUTE .STK-MED ONE Stop: 08/27/16 13:52 Hydromorphone HCl (Dilaudid) Confirm Administered Dose 2 mg .ROUTE .STK-MED ONE Stop: 08/27/16 13:14 Sodium Chloride (Normal Saline) 1,000 mls @ 50 mls/hr IV ASDIRECTED ANEUDY Last Admin: 08/27/16 16:25 Dose: 50 mls/hr Sodium Chloride (Normal Saline) 1,000 mls @ 50 mls/hr IV ASDIRECTED ANEUDY Stop: 08/28/16 04:29 Last Admin: 08/27/16 18:05 Dose: Not Given Ibuprofen (Motrin) 600 mg PO ONETIME ANEUDY Stop: 08/25/16 16:00 Last Admin: 08/25/16 14:37 Dose: 600 mg Ketorolac Tromethamine (Toradol) 15 mg IVPUSH ONETIME ONE Stop: 08/27/16 14:29 Last Admin: 08/27/16 19:58 Dose: Not Given Lidocaine (Xylocaine-Mpf 2%) Confirm Administered Dose 5 ml .ROUTE .STK-MED ONE Stop: 08/27/16 07:29 Midazolam HCl (Versed 1 Mg/Ml) Confirm Administered Dose 2 mg .ROUTE .STK-MED ONE Stop: 08/27/16 07:29 Neostigmine Methylsulfate (Neostigmine) Confirm Administered Dose 5 mg .ROUTE .STK-MED ONE Stop: 08/27/16 13:52 Octyl Cyanoacrylate (Dermabond Advance) Confirm Administered Dose 1 applic .ROUTE .STK-MED ONE Stop: 08/27/16 11:28 Ondansetron HCl (Zofran) Confirm Administered Dose 4 mg .ROUTE .STK-MED ONE Stop: 08/27/16 13:52 Oxycodone/Acetaminophen (Percocet 325-5 Mg) 1 - 2 tab PO Q4H PRN PRN Reason: Pain Last Admin: 08/26/16 22:29 Dose: 2 tab Propofol (Diprivan 20 Ml) Confirm Administered Dose 200 mg .ROUTE .STK-MED ONE Stop: 08/27/16 07:29 Rocuronium [place] (Zemuron) Confirm Administered Dose 100 mg .ROUTE .STK-MED ONE Stop: 08/27/16 07:29 - Exam Wound/Incisions: healing well General: alert, oriented HEENT: Pupils equal Neck: supple Lungs: Clear to auscultation, Normal respiratory effort Cardiovascular: Regular Rate, Regular Rhythm Abdomen: bowel sounds present, soft, no tenderness, no distension Extremities: no edema Skin: warm, dry, intact Neurological: no new focal deficit Psy/Mental Status: alert, normal affect, normal mood - Problem List Review Problem List Initiated/Reviewed/Updated: Yes - My Orders Last 24 Hours: Active Orders 24 hr Category Date Time Status Patient Status [ADT] Routine ADT 08/27/16 14:28 Active Accu Check [Blood Glucose Check, Bedside] [RC] TIDAC Care 08/28/16 07:00 Active Antiembolic Devices [RC] PER UNIT ROUTINE Care 08/27/16 14:29 Active Bradycardia-Neuroaxis [employer] [RC] ROUTINE Care 08/27/16 14:02 Active Communication Order [RC] DAILY Care 08/27/16 17:57 Active Hypertension-Neuroaxis [employer] [RC] ROUTINE Care 08/27/16 14:02 Active Hypotension-Neuroaxis [employer] [RC] ROUTINE Care 08/27/16 14:02 Active Notify Provider Vital Signs [RC] ASDIRECTED Care 08/27/16 14:28 Active Oxygen Therapy [RC] ASDIRECTED Care 08/27/16 14:02 Active RT Incentive Spirometry [RC] Q2HWA Care 08/27/16 14:28 Active Up With Assistance [RC] PER UNIT ROUTINE Care 08/27/16 14:28 Active Up ad Shabnam [RC] PER UNIT ROUTINE Care 08/27/16 14:28 Active Urinary Catheter Removal [RC] Per Unit Routine Care 08/27/16 14:28 Active Vital Signs [RC] PER UNIT ROUTINE Care 08/27/16 14:02 Active Vital Signs [RC] PER UNIT ROUTINE Care 08/27/16 14:28 Active Regular Diet [DIET] Diet 08/27/16 Dinner Active BMP [BASIC METABOLIC PANEL,BMP] [CHEM] DAILY Lab 08/29/16 05:00 Ordered BMP [BASIC METABOLIC PANEL,BMP] [CHEM] DAILY Lab 08/30/16 05:00 Ordered CBC WITH AUTO DIFF [HEME] DAILY Lab 08/29/16 05:00 Ordered CBC WITH AUTO DIFF [HEME] DAILY Lab 08/30/16 05:00 Ordered Acetaminophen/oxyCODONE [Percocet 325-5 MG] Med 08/27/16 14:28 Active 1 tab PO Q4H PRN Acetaminophen/oxyCODONE [Percocet 325-5 MG] Med 08/27/16 14:28 Active 2 tab PO Q4H PRN Calcium Carbonate [Tums] Med 08/28/16 09:00 Active 1,000 mg PO DAILY Ketorolac [Toradol] Med 08/27/16 14:28 Active 15 mg IVPUSH Q6H PRN Morphine Med 08/27/16 14:28 Active 2 mg IVPUSH Q2H PRN Morphine Med 08/27/16 14:28 Active 4 mg IVPUSH Q2H PRN Ondansetron [Zofran] Med 08/27/16 14:28 Active 4 mg IVPUSH Q6H PRN Promethazine [Phenergan] Med 08/27/16 14:28 Active 25 mg IM Q6H PRN Scopolamine [Transderm-Scop] Med 08/27/16 18:16 Active 1.5 mg TRDERM ONETIME PRN Peripheral IV Discontinue [OM.PC] Routine Oth 08/27/16 14:28 Ordered Sequential Compression Device [OM.PC] Per Unit Routine Oth 08/27/16 14:28 Ordered Medication Orders Calcium Carbonate/Glycine (Tums) 1,000 mg PO DAILY [facility] Insulin Human Regular (Novolin R) 0 unit SUBCUT TIDAC ANEUDY PRN Reason: Protocol Last Admin: 08/28/16 06:53 Dose: Admin: 08/27/16 17:29 Dose: 1 unit Admin: 08/27/16 11:51 Dose: Not Given Admin: 08/27/16 06:45 Dose: Admin: 08/26/16 17:03 Dose: 1 unit Admin: 08/26/16 11:40 Dose: Not Given Admin: 08/26/16 06:40 Dose: Not Given Admin: 08/25/16 17:16 Dose: 1 unit Ketorolac Tromethamine (Toradol) 15 mg IVPUSH Q6H PRN PRN Reason: Pain (severe 7-10) Stop: 09/01/16 14:28 Morphine Sulfate (Morphine) 2 mg IVPUSH Q2H PRN PRN Reason: Pain (severe 7-10) Last Admin: 08/27/16 16:21 Dose: 2 mg Morphine Sulfate (Morphine) 4 mg IVPUSH Q2H PRN PRN Reason: Pain (severe 7-10) Last Admin: 08/27/16 18:52 Dose: 4 mg Nifedipine (Procardia Xl) 60 mg PO DAILY [facility] Last Admin: 08/28/16 08:05 Dose: 60 mg Admin: 08/27/16 08:34 Dose: 60 mg Admin: 08/26/16 15:23 Dose: 60 mg Ondansetron HCl (Zofran) 4 mg IVPUSH Q6H PRN PRN Reason: Nausea/Vomiting Last Admin: 08/27/16 16:03 Dose: 4 mg Oxycodone/Acetaminophen (Percocet 325-5 Mg) 1 tab PO Q4H PRN PRN Reason: Pain (moderate 4-6) Oxycodone/Acetaminophen (Percocet 325-5 Mg) 2 tab PO Q4H PRN PRN Reason: Pain (moderate 4-6) Last Admin: 08/28/16 06:42 Dose: 2 tab Admin: 08/27/16 21:53 Dose: 2 tab Promethazine HCl (Phenergan) 25 mg IM Q6H PRN PRN Reason: Nausea/Vomiting Last Admin: 08/27/16 18:40 Dose: 25 mg Scopolamine (Transderm-Scop) 1.5 mg TRDERM ONETIME PRN PRN Reason: Nausea/Vomiting Sodium Chloride (Saline Flush) 10 ml FLUSH ASDIRECTED PRN PRN Reason: Keep Vein Open Sodium Chloride (Saline Flush) 2.5 ml FLUSH ASDIRECTED PRN PRN Reason: Keep Vein Open - Assessment Assessment (Free Text/Narrative):: Status post laparoscopic hysterectomy and laparoscopic bilateral salpingo- oophorectomy and postoperative day #1 the patient is doing well no vaginal bleeding no pain no discomfort - Plan Plan (Free Text/Narrative):: And sending the patient home today to be followed in the office one week the day of her discharge post hysterectomy instruction is given to the prescription for Percocet 7.5/325 for pain is given
--- NOTE | 2016-08-28 09:45 | PCM.CONSN ---
<MarksAlessandro west - Last Filed: 08/28/16 09:39> - General Info Date of Service: 08/28/16 Admission Dx/Problem (Free Text): Symptomatic Anemia, Menometrorrhagia Subjective Update: Patient doing well today. Mild lower abdominal pain at surgical sites. Denies bleeding. Energy level and fatigue much improved. No chest pain, sob, palpitations. Eating without difficulty. Ready to go home. Functional Status: Reports: pain controlled, tolerating diet, ambulating - Review of Systems General: Denies: Fever, Weakness, Fatigue HEENT: Denies: contact lenses Pulmonary: Denies: shortness of breath, hemoptysis, wheezing Cardiovascular: Denies: Chest Pain, Palpitations Gastrointestinal: Reports: Abdominal pain. Denies: Constipation, Hematochezia, Melena, Nausea, Vomiting Genitourinary: Denies: dysuria Musculoskeletal: Denies: neck pain, foot pain Skin: Denies: cyanosis Neurological: Denies: Confusion, Dizziness - Patient Data Vitals - most recent: Last Vital Signs Temp 37.1 C 08/28/16 07:25 Pulse 97 08/28/16 07:25 Resp 16 08/28/16 07:25 BP 136/66 08/28/16 08:05 Pulse Ox 97 08/28/16 07:25 Weight - most recent: 102.33 kg I&O - last 24 hours: Intake & Output 08/27/16 08/28/16 08/28/16 22:59 06:59 14:59 Intake Total 900 1316 Output Total 610 520 Balance 290 796 Lab Results last 24 hrs: Laboratory Results - last 24 hr 08/27/16 08/27/16 08/28/16 Range/Units 11:38 12:35 04:50 WBC 14.71 H (4.0-11.0) K/uL RBC 3.31 L (4.30-5.90) M/uL Hgb 9.2 L (12.0-16.0) g/dL Hct 29.5 L (36.0-46.0) % MCV 89.1 (80.0-98.0) fL MCH 27.8 (27.0-32.0) pg MCHC 31.2 (31.0-37.0) g/dL RDW Std Deviation 52.5 (28.0-62.0) fl RDW Coeff of Tacho 16 H (11.0-15.0) % Plt Count 326 (150-400) K/uL MPV 8.40 (7.40-12.00) fL Neut % (Auto) 77.2 (48.0-80.0) % Lymph % (Auto) 14.8 L (16.0-40.0) % [place] % (Auto) 7.2 (0.0-15.0) % Eos % (Auto) 0.7 (0.0-7.0) % Baso % (Auto) 0.1 (0.0-1.5) % Neut # (Auto) 11.4 H (1.4-5.7) K/uL Lymph # (Auto) 2.2 (0.6-2.4) K/uL [place] # (Auto) 1.1 H (0.0-0.8) K/uL Eos # (Auto) 0.1 (0.0-0.7) K/uL Baso # (Auto) 0.0 (0.0-0.1) K/uL Nucleated RBC % 0.2 /100WBC Nucleated RBCs # 0 K/uL Sodium (136-146) mmol/L Potassium (3.5-5.1) mmol/L Chloride (98-110) mmol/L Carbon Dioxide (21-31) mmol/L BUN (6.0-23.0) mg/dL Creatinine (0.6-1.5) mg/dL Est Cr Clr Drug Dosing mL/min Estimated GFR (MDRD) ml/min Glucose (60-110) mg/dL POC Glucose 108 (60-110) mg/dL Calcium (8.8-10.8) mg/dL Urine HCG, Qual NEGATIVE (NEGATIVE) 08/28/16 Range/Units 04:50 WBC (4.0-11.0) K/uL RBC (4.30-5.90) M/uL Hgb (12.0-16.0) g/dL Hct (36.0-46.0) % MCV (80.0-98.0) fL MCH (27.0-32.0) pg MCHC (31.0-37.0) g/dL RDW Std Deviation (28.0-62.0) fl RDW Coeff of [place] (11.0-15.0) % Plt Count (150-400) K/uL MPV (7.40-12.00) fL Neut % (Auto) (48.0-80.0) % Lymph % (Auto) (16.0-40.0) % [place] % (Auto) (0.0-15.0) % Eos % (Auto) (0.0-7.0) % Baso % (Auto) (0.0-1.5) % Neut # (Auto) (1.4-5.7) K/uL Lymph # (Auto) (0.6-2.4) K/uL [place] # (Auto) (0.0-0.8) K/uL Eos # (Auto) (0.0-0.7) K/uL Baso # (Auto) (0.0-0.1) K/uL Nucleated RBC % /100WBC Nucleated RBCs # K/uL Sodium 140 (136-146) mmol/L Potassium 4.6 (3.5-5.1) mmol/L Chloride 111 H (98-110) mmol/L Carbon Dioxide 20 L (21-31) mmol/L BUN 34 H (6.0-23.0) mg/dL Creatinine 2.9 H (0.6-1.5) mg/dL Est Cr Clr Drug Dosing 23.41 mL/min Estimated GFR (MDRD) 17.2 ml/min Glucose 103 (60-110) mg/dL POC Glucose (60-110) mg/dL Calcium 7.6 L (8.8-10.8) mg/dL Urine HCG, Qual (NEGATIVE) Med Orders - Current: Current Medications Calcium Carbonate/Glycine (Tums) 1,000 mg PO DAILY [facility] Insulin Human Regular (Novolin R) 0 unit SUBCUT TIDAC [facility] PRN Reason: Protocol Last Admin: 08/28/16 06:53 Dose: Not Given Ketorolac Tromethamine (Toradol) 15 mg IVPUSH Q6H PRN PRN Reason: Pain (severe 7-10) Stop: 09/01/16 14:28 Morphine Sulfate (Morphine) 2 mg IVPUSH Q2H PRN PRN Reason: Pain (severe 7-10) Last Admin: 08/27/16 16:21 Dose: 2 mg Morphine Sulfate (Morphine) 4 mg IVPUSH Q2H PRN PRN Reason: Pain (severe 7-10) Last Admin: 08/27/16 18:52 Dose: 4 mg Nifedipine (Procardia Xl) 60 mg PO DAILY [facility] Last Admin: 08/28/16 08:05 Dose: 60 mg Ondansetron HCl (Zofran) 4 mg IVPUSH Q6H PRN PRN Reason: Nausea/Vomiting Last Admin: 08/27/16 16:03 Dose: 4 mg Oxycodone/Acetaminophen (Percocet 325-5 Mg) 1 tab PO Q4H PRN PRN Reason: Pain (moderate 4-6) Oxycodone/Acetaminophen (Percocet 325-5 Mg) 2 tab PO Q4H PRN PRN Reason: Pain (moderate 4-6) Last Admin: 08/28/16 06:42 Dose: 2 tab Promethazine HCl (Phenergan) 25 mg IM Q6H PRN PRN Reason: Nausea/Vomiting Last Admin: 08/27/16 18:40 Dose: 25 mg Scopolamine (Transderm-Scop) 1.5 mg TRDERM ONETIME PRN PRN Reason: Nausea/Vomiting Sodium Chloride (Saline Flush) 10 ml FLUSH ASDIRECTED PRN PRN Reason: Keep Vein Open Sodium Chloride (Saline Flush) 2.5 ml FLUSH ASDIRECTED PRN PRN Reason: Keep Vein Open Discontinued Medications Belladonna Alkaloids/Opium (B & O Supprettes No. 15a) 1 supp RECTAL .ONCE PRN PRN Reason: Pain Stop: 08/27/16 15:55 Fentanyl (Sublimaze) Confirm Administered Dose 100 mcg .ROUTE .STK-MED ONE Stop: 08/27/16 07:29 Fentanyl (Sublimaze) Confirm Administered Dose 100 mcg .ROUTE .STK-MED ONE Stop: 08/27/16 14:01 Fentanyl (Sublimaze) 50 - 100 mcg IVPUSH Q5M PRN PRN Reason: Pain Stop: 08/27/16 15:45 Last Admin: 08/27/16 15:30 Dose: 50 mcg Fluorescein Sodium (Ak-Fluor) Confirm Administered Dose 5 ml .ROUTE .STK-MED ONE Stop: 08/27/16 11:28 Furosemide (Lasix) Confirm Administered Dose 40 mg .ROUTE .STK-MED ONE Stop: 08/27/16 13:52 Glycopyrrolate () Confirm Administered Dose 1 mg .ROUTE .STK-MED ONE Stop: 08/27/16 13:52 Hydromorphone HCl (Dilaudid) Confirm Administered Dose 2 mg .ROUTE .STK-MED ONE Stop: 08/27/16 13:14 Sodium Chloride (Normal Saline) 1,000 mls @ 50 mls/hr IV ASDIRECTED [facility] Last Admin: 08/27/16 16:25 Dose: 50 mls/hr Sodium Chloride (Normal Saline) 1,000 mls @ 50 mls/hr IV ASDIRECTED [facility] Stop: 08/28/16 04:29 Last Admin: 08/27/16 18:05 Dose: Not Given Ibuprofen (Motrin) 600 mg PO ONETIME [facility] Stop: 08/25/16 16:00 Last Admin: 08/25/16 14:37 Dose: 600 mg Ketorolac Tromethamine (Toradol) 15 mg IVPUSH ONETIME ONE Stop: 08/27/16 14:29 Last Admin: 08/27/16 19:58 Dose: Not Given Lidocaine (Xylocaine-Mpf 2%) Confirm Administered Dose 5 ml .ROUTE .STK-MED ONE Stop: 08/27/16 07:29 Midazolam HCl (Versed 1 Mg/Ml) Confirm Administered Dose 2 mg .ROUTE .STK-MED ONE Stop: 08/27/16 07:29 Neostigmine Methylsulfate (Neostigmine) Confirm Administered Dose 5 mg .ROUTE .STK-MED ONE Stop: 08/27/16 13:52 Octyl Cyanoacrylate (Dermabond Advance) Confirm Administered Dose 1 applic .ROUTE .STK-MED ONE Stop: 08/27/16 11:28 Ondansetron HCl (Zofran) Confirm Administered Dose 4 mg .ROUTE .STK-MED ONE Stop: 08/27/16 13:52 Oxycodone/Acetaminophen (Percocet 325-5 Mg) 1 - 2 tab PO Q4H PRN PRN Reason: Pain Last Admin: 08/26/16 22:29 Dose: 2 tab Propofol (Diprivan 20 Ml) Confirm Administered Dose 200 mg .ROUTE .STK-MED ONE Stop: 08/27/16 07:29 Rocuronium [place] (Zemuron) Confirm Administered Dose 100 mg .ROUTE .STK-MED ONE Stop: 08/27/16 07:29 - Exam Quality Assessment: DVT prophylaxis General: alert, oriented, cooperative, no acute distress HEENT: Pupils equal, Pupils reactive, EOMI, Mucous membr. moist/pink Neck: supple Lungs: Clear to auscultation, Normal respiratory effort Cardiovascular: Regular Rate, Regular Rhythm Abdomen: bowel sounds present, soft, no tenderness, no distension Back Exam: normal inspection, full range of motion Extremities: no edema, normal pulses, no tenderness/swelling Peripheral Pulses: 2+: radial (L), radial (R), posterior tibial (L), posterior tibial (R), dorsalis pedis (L), dorsalis pedis (R) Skin: warm, dry, intact Wound/Incisions: dressing dry and intact Neurological: no new focal deficit Psy/Mental Status: alert, normal affect, normal mood Consult PN Assessment/Plan (1) Symptomatic anemia SNOMED Code(s): 110751946 Code(s): D64.9 - ANEMIA, UNSPECIFIED Priority: Low Comment: Resolved. Patient baseline most likely lower secondary to chronic kidney disease. (2) Menometrorrhagia SNOMED Code(s): 336222081 Code(s): N92.1 - EXCESSIVE AND FREQUENT MENSTRUATION WITH IRREGULAR CYCLE Priority: Low Comment: lap hysterectomy, bilateral oopherectomy 08/27/16. (3) Acute on chronic kidney failure SNOMED Code(s): 011327483 Code(s): N17.9 - ACUTE KIDNEY FAILURE, UNSPECIFIED; N18.9 - CHRONIC KIDNEY DISEASE, UNSPECIFIED Priority: Low Comment: Resolved. Baseline Cr 2.8 in May (4) Hypertension SNOMED Code(s): 73244475 Code(s): I10 - ESSENTIAL (PRIMARY) HYPERTENSION Priority: Medium Qualifiers: Hypertension type: essential hypertension Qualified Code(s): I10 - Essential (primary) hypertension (5) Diabetes type 2, controlled SNOMED Code(s): 62793138 Code(s): E11.9 - TYPE 2 DIABETES MELLITUS WITHOUT COMPLICATIONS Priority: Medium Qualifiers: Proliferative retinopathy type: unspecified Diabetes mellitus intermediate insulin use: without insurance sales supervisor use Laterality: unspecified laterality Problem List Initiated/Reviewed/Updated: Yes My Orders last 24 hours: My Active Orders 08/27/16 17:57 Communication Order [RC] DAILY 08/28/16 09:00 Calcium Carbonate [Tums] 1,000 mg PO DAILY 08/29/16 05:00 BMP [BASIC METABOLIC PANEL,BMP] [CHEM] DAILY CBC WITH AUTO DIFF [HEME] DAILY 08/30/16 05:00 BMP [BASIC METABOLIC PANEL,BMP] [CHEM] DAILY CBC WITH AUTO DIFF [HEME] DAILY Plan: 50 yo female admitted to [facility] (Dr. Marshall) on 08/25/16 for symptomatic anemia secondary to menometrorrhagia with pmh of chronic kidney disease, hypertension and type II diabetes. Symptomatic anemia: Resolved Hgb 9.2 after surgery on 08/24/16. Patient most likely has a component of anemia secondary to her chronic kidney disease. Menometrorhagia: Resolved. Lap hysterectomy and bilateral oopherectomy by Dr. Marshall Chronic Kidney disease: [place] Cr in May was 2.8. Cr today was 2.9 so we have any acute prerenal issues secondary to her recent anemia. I have scheduled the patient to follow-up with her Road Consultant in [place] Dr. Khan. Hypertension: Stable on home 60 mg Nefidipine. Type II diabetes: Stop ISS and have patient take home Trulicity today. Patient is stable and I agree with primary team that discharge is appropriate today. We have made follow-up appointments with Dr. Marshall in 1 week, her PCP Cristy Mora NP at [facility], and her belt sander stone Dr. Khan. Thank you for your consult. <Rajeev Lazo - Last Filed: 08/28/16 20:07> - Patient Data Vitals - most recent: Last Vital Signs Temp 37.1 C 08/28/16 07:25 Pulse 97 08/28/16 07:25 Resp 16 08/28/16 07:25 BP 136/66 08/28/16 08:05 Pulse Ox 97 08/28/16 07:25 I&O - last 24 hours: Intake & Output 08/28/16 08/28/16 08/28/16 06:59 14:59 22:59 Intake Total 1316 400 Output Total 520 800 Balance 796 -400 Lab Results last 24 hrs: Laboratory Results - last 24 hr 08/28/16 08/28/16 Range/Units 04:50 04:50 WBC 14.71 H (4.0-11.0) K/uL RBC 3.31 L (4.30-5.90) M/uL Hgb 9.2 L (12.0-16.0) g/dL Hct 29.5 L (36.0-46.0) % MCV 89.1 (80.0-98.0) fL MCH 27.8 (27.0-32.0) pg MCHC 31.2 (31.0-37.0) g/dL RDW Std Deviation 52.5 (28.0-62.0) fl RDW Coeff of Tacho 16 H (11.0-15.0) % Plt Count 326 (150-400) K/uL MPV 8.40 (7.40-12.00) fL Neut % (Auto) 77.2 (48.0-80.0) % Lymph % (Auto) 14.8 L (16.0-40.0) % [place] % (Auto) 7.2 (0.0-15.0) % Eos % (Auto) 0.7 (0.0-7.0) % Baso % (Auto) 0.1 (0.0-1.5) % Neut # (Auto) 11.4 H (1.4-5.7) K/uL Lymph # (Auto) 2.2 (0.6-2.4) K/uL [place] # (Auto) 1.1 H (0.0-0.8) K/uL Eos # (Auto) 0.1 (0.0-0.7) K/uL Baso # (Auto) 0.0 (0.0-0.1) K/uL Nucleated RBC % 0.2 /100WBC Nucleated RBCs # 0 K/uL Sodium 140 (136-146) mmol/L Potassium 4.6 (3.5-5.1) mmol/L Chloride 111 H (98-110) mmol/L Carbon Dioxide 20 L (21-31) mmol/L BUN 34 H (6.0-23.0) mg/dL Creatinine 2.9 H (0.6-1.5) mg/dL Est Cr Clr Drug Dosing 23.41 mL/min Estimated GFR (MDRD) 17.2 ml/min Glucose 103 (60-110) mg/dL Calcium 7.6 L (8.8-10.8) mg/dL Med Orders - Current: Current Medications Discontinued Medications Belladonna Alkaloids/Opium (B & O Supprettes No. 15a) 1 supp RECTAL .ONCE PRN PRN Reason: Pain Stop: 08/27/16 15:55 Calcium Carbonate/Glycine (Tums) 1,000 mg PO DAILY [facility] Last Admin: 08/28/16 09:43 Dose: 1,000 mg Fentanyl (Sublimaze) Confirm Administered Dose 100 mcg .ROUTE .STK-MED ONE Stop: 08/27/16 07:29 Fentanyl (Sublimaze) Confirm Administered Dose 100 mcg .ROUTE .STK-MED ONE Stop: 08/27/16 14:01 Fentanyl (Sublimaze) 50 - 100 mcg IVPUSH Q5M PRN PRN Reason: Pain Stop: 08/27/16 15:45 Last Admin: 08/27/16 15:30 Dose: 50 mcg Fluorescein Sodium (Ak-Fluor) Confirm Administered Dose 5 ml .ROUTE .STK-MED ONE Stop: 08/27/16 11:28 Furosemide (Lasix) Confirm Administered Dose 40 mg .ROUTE .STK-MED ONE Stop: 08/27/16 13:52 Glycopyrrolate () Confirm Administered Dose 1 mg .ROUTE .STK-MED ONE Stop: 08/27/16 13:52 Hydromorphone HCl (Dilaudid) Confirm Administered Dose 2 mg .ROUTE .STK-MED ONE Stop: 08/27/16 13:14 Sodium Chloride (Normal Saline) 1,000 mls @ 50 mls/hr IV ASDIRECTED [facility] Last Admin: 08/27/16 16:25 Dose: 50 mls/hr Sodium Chloride (Normal Saline) 1,000 mls @ 50 mls/hr IV ASDIRECTED [facility] Stop: 08/28/16 04:29 Last Admin: 08/27/16 18:05 Dose: Not Given Ibuprofen (Motrin) 600 mg PO ONETIME [facility] Stop: 08/25/16 16:00 Last Admin: 08/25/16 14:37 Dose: 600 mg Insulin Human Regular (Novolin R) 0 unit SUBCUT TIDAC [facility] PRN Reason: Protocol Last Admin: 08/28/16 06:53 Dose: Not Given Ketorolac Tromethamine (Toradol) 15 mg IVPUSH ONETIME ONE Stop: 08/27/16 14:29 Last Admin: 08/27/16 19:58 Dose: Not Given Ketorolac Tromethamine (Toradol) 15 mg IVPUSH Q6H PRN PRN Reason: Pain (severe 7-10) Stop: 09/01/16 14:28 Lidocaine (Xylocaine-Mpf 2%) Confirm Administered Dose 5 ml .ROUTE .STK-MED ONE Stop: 08/27/16 07:29 Midazolam HCl (Versed 1 Mg/Ml) Confirm Administered Dose 2 mg .ROUTE .STK-MED ONE Stop: 08/27/16 07:29 Morphine Sulfate (Morphine) 2 mg IVPUSH Q2H PRN PRN Reason: Pain (severe 7-10) Last Admin: 08/27/16 16:21 Dose: 2 mg Morphine Sulfate (Morphine) 4 mg IVPUSH Q2H PRN PRN Reason: Pain (severe 7-10) Last Admin: 08/27/16 18:52 Dose: 4 mg Neostigmine Methylsulfate (Neostigmine) Confirm Administered Dose 5 mg .ROUTE .STK-MED ONE Stop: 08/27/16 13:52 Nifedipine (Procardia Xl) 60 mg PO DAILY [facility] Last Admin: 08/28/16 08:05 Dose: 60 mg Octyl Cyanoacrylate (Dermabond Advance) Confirm Administered Dose 1 applic .ROUTE .STK-MED ONE Stop: 08/27/16 11:28 Ondansetron HCl (Zofran) Confirm Administered Dose 4 mg .ROUTE .STK-MED ONE Stop: 08/27/16 13:52 Ondansetron HCl (Zofran) 4 mg IVPUSH Q6H PRN PRN Reason: Nausea/Vomiting Last Admin: 08/27/16 16:03 Dose: 4 mg Oxycodone/Acetaminophen (Percocet 325-5 Mg) 1 - 2 tab PO Q4H PRN PRN Reason: Pain Last Admin: 08/26/16 22:29 Dose: 2 tab Oxycodone/Acetaminophen (Percocet 325-5 Mg) 1 tab PO Q4H PRN PRN Reason: Pain (moderate 4-6) Oxycodone/Acetaminophen (Percocet 325-5 Mg) 2 tab PO Q4H PRN PRN Reason: Pain (moderate 4-6) Last Admin: 08/28/16 06:42 Dose: 2 tab Promethazine HCl (Phenergan) 25 mg IM Q6H PRN PRN Reason: Nausea/Vomiting Last Admin: 08/27/16 18:40 Dose: 25 mg Propofol (Diprivan 20 Ml) Confirm Administered Dose 200 mg .ROUTE .STK-MED ONE Stop: 08/27/16 07:29 Rocuronium [place] ([place]) Confirm Administered Dose 100 mg .ROUTE .STK-MED ONE Stop: 08/27/16 07:29 Scopolamine (Transderm-Scop) 1.5 mg TRDERM ONETIME PRN PRN Reason: Nausea/Vomiting Sodium Chloride (Saline Flush) 10 ml FLUSH ASDIRECTED PRN PRN Reason: Keep Vein Open Sodium Chloride (Saline Flush) 2.5 ml FLUSH ASDIRECTED PRN PRN Reason: Keep Vein Open - Free Text/Narrative Note: I have examined the patient. I have discussed findings and treatment plan with resident. I agree with the assessment and plan outlined in the resident's note.
== END 2016-08-28 10:50 | disposition home or self-care (01) | DRG 951 ==
LOC: MW.MS 11:33
PROVIDERS: ADMIT Obstetrics & Gynecology; ATTEND Obstetrics & Gynecology
PROC: 0UT97ZZ Resection of Uterus, Via Natural or Artificial Opening (ICD-10-PCS; principal; 2016-08-25)
PROC: 0UT77ZZ Resection of Bilateral Fallopian Tubes, Via Natural or Artificial Opening (ICD-10-PCS; 2016-08-25)
PROC: 0UT27ZZ Resection of Bilateral Ovaries, Via Natural or Artificial Opening (ICD-10-PCS; 2016-08-25)
PROC: 0UN44ZZ Release Uterine Supporting Structure, Percutaneous Endoscopic Approach (ICD-10-PCS; 2016-08-25)
PROC: 30233N1 Transfusion of Nonautologous Red Blood Cells into Peripheral Vein, Percutaneous Approach (ICD-10-PCS; 2016-08-25)
DX: D50.0 Iron deficiency anemia secondary to blood loss (chronic) (principal); D63.1 Anemia in chronic kidney disease; I12.9 Hypertensive chronic kidney disease with stage 1 through stage 4 chronic kidney disease, or unspecified chronic kidney disease; N18.9 Chronic kidney disease, unspecified; N17.9 Acute kidney failure, unspecified; N92.1 Excessive and frequent menstruation with irregular cycle; E11.9 Type 2 diabetes mellitus without complications; N85.2 Hypertrophy of uterus; N83.202 Unspecified ovarian cyst, left side; N83.201 Unspecified ovarian cyst, right side; N85.00 Endometrial hyperplasia, unspecified
CPT/HCPCS: 00944; 36415; 36430; 71020; 71020-26; 74176; 74176-26; 80048; 80053; 81025; 82962; 85014; 85018; 85025; 86304; 86850; 86900; 86901; 86920; 86921; 86922; 88305; 88309; 93005; A9270-GY; J1170; J1815-GY; J1940; J2250; J2270; J2405; J2550; J2704; J3010; J7040; P9016